=== PATIENT | female | born 1935 | race Caucasian/White ===

== ENCOUNTER 2017-06-17 03:01 | Emergency (ER) | payer MEDICARE, OTHER ==
[2017-06-17] MEDS ORDERED: DIPH,PERTUS(ACELL)TETVAC-LF 0.5 ML VIAL IM ONE (03:14)
[2017-06-17 03:48] LABS: Basophils % (A) 0 %; Eosinophils # (A) 0.4 k/uL (0-0.7); Eosinophils % (A) 5 %; HCT 40.7 % (34.0-46.0); HGB 13.2 gm/dL (11.4-16.0); Lymphocytes # (A) 1.9 k/uL (1.0-4.8); Lymphocytes % (A) 22 %; MCH 31.5 pg (25.0-35.0); MCHC 32.4 g/dL (31.0-37.0); Mean Platelet Volume 7.7; Monocytes # (A) 0.8 k/uL (0-1.0); Monocytes % (A) 10 %; Neutrophils # (A) 5.3 k/uL (1.3-7.7); Neutrophils % (A) 61 %; Platelet Count 194 k/uL (150-450); RBC 4.19 m/uL (3.80-5.40); RDW 12.4 % (11.5-15.5); WBC 8.6 k/uL (3.8-10.6)
[2017-06-17 04:05] LABS: ALT 36 U/L (9-52); AST 36 U/L (14-36); Albumin 3.7 g/dL (3.5-5.0); Alkaline Phosphatase 64 U/L (38-126); Anion Gap 9 mmol/L; Blood Urea Nitrogen 20 mg/dL (7-17); Calcium 9.5 mg/dL (8.4-10.2); Carbon Dioxide 27 mmol/L (22-30); Chloride 106 mmol/L (98-107); Glucose 90 mg/dL (74-99); Potassium 4.7 mmol/L (3.5-5.1); Sodium 142 mmol/L (137-145); Total Bilirubin 0.4 mg/dL (0.2-1.3); Total Protein 6.9 g/dL (6.3-8.2)
--- NOTE | 2017-06-17 04:21 | ED ---
Fall HPI - General Chief Complaint: Fall Stated Complaint: Fall, Head lac Time Seen by Provider: 06/17/17 03:07 Source: patient Mode of arrival: EMS - History of Present Illness Initial Comments: 81 years old female resident of the shelter unfortunately fell tonight it was unwitnessed she does have a small laceration on the right temporal area him a she is on Plavix she is complaining about some discomfort in her neck area also complaining of some discomfort in the upper back, she did not denies any injury to the upper extremities or lower extremities she is denying any chest pain no shortness of breath no abdominal pain no pain in the pelvic area - Related Data Home Medications Medication Instructions Recorded Confirmed Aspirin 81 mg PO DAILY 09/21/14 12/02/14 Insulin Glargine,Hum.rec.anlog 20 unit SQ HS 10/14/14 12/02/14 [Lantus Solostar] Multivitamins, Thera [Multivitamin 1 tab PO DAILY 10/14/14 12/02/14 (formulary)] [place]-3 Fatty Acids [[place]-3] 1,000 mg PO DAILY 10/14/14 12/02/14 Citalopram Hydrobromide [CeleXA] 10 mg PO HS@199912/02/14 12/02/14 Previous Rx's Medication Instructions Recorded INSULIN LISPRO (humaLOG) [humaLOG] 0 unit SQ ACHS vial 12/05/14 Levofloxacin [Levaquin] 250 mg PO HS #7 tab 12/05/14 SILVER sulfADIAZINE CREAM 1 applic TOPICAL DAILY applic 12/05/14 [Silvadene Cream] Allergies Allergy/AdvReac Type Severity Reaction Status Date / Time acetaminophen [From [place]] Allergy Unknown Verified 12/02/14 17:38 adhesive Allergy Unknown Verified 12/02/14 17:38 atenolol Allergy Unknown Verified 12/02/14 17:38 clindamycin Allergy Unknown Verified 12/02/14 17:38 clopidogrel bisulfate Allergy Unknown Verified 12/02/14 17:38 [From Plavix] codeine Allergy Unknown Verified 12/02/14 17:38 digoxin Allergy Unknown Verified 12/02/14 17:38 diltiazem HCl [From Cardizem] Allergy Unknown Verified 12/02/14 17:38 diphenhydramine HCl Allergy Anaphylaxis Verified 12/02/14 17:38 [From Benadryl] erythromycin base Allergy Unknown Verified 12/02/14 17:38 flecainide acetate Allergy Unknown Verified 12/02/14 17:38 [From Tambocor] glimepiride Allergy Rash/Hives Verified 12/02/14 17:38 glipizide Allergy Unknown Verified 12/02/14 17:38 hydrocodone bitartrate Allergy Unknown Verified 12/02/14 17:38 [From [place]] lisinopril Allergy Unknown Verified 12/02/14 17:38 lorazepam [From Ativan] Allergy Unknown Verified 12/02/14 17:38 metformin Allergy Unknown Verified 12/02/14 17:38 metoprolol succinate Allergy Unknown Verified 12/02/14 17:38 [From Toprol XL] Penicillins Allergy Rash/Hives Verified 12/02/14 17:38 prednisolone Allergy Rash/Hives Verified 12/02/14 17:38 prochlorperazine Allergy Unknown Verified 12/02/14 17:38 propafenone HCl Allergy Unknown Verified 12/02/14 17:38 [From Rythmol] propoxyphene napsylate Allergy Swelling Verified 12/02/14 17:38 [From Darvocet-N] propranolol Allergy Unknown Verified 12/02/14 17:38 pseudoephedrine HCl Allergy Unknown Verified 12/02/14 17:38 [From Sudafed] rosiglitazone maleate Allergy Unknown Verified 12/02/14 17:38 [From Avandia] Sitojrn-Cue-Nsf Reductase Allergy Unknown Verified 12/02/14 17:38 Inhibitor Sulfa (Sulfonamide Allergy Rash/Hives Verified 12/02/14 17:38 Antibiotics) verapamil HCl [From [place]] Allergy Unknown Verified 12/02/14 17:38 warfarin sodium Allergy Rash/Hives Verified 12/02/14 17:38 [From Coumadin] altaryl Allergy Unknown Uncoded 12/02/14 17:38 Review of Systems ROS Statement: Those systems with pertinent positive or pertinent negative responses have been documented in the HPI. ROS Other: All systems not noted in ROS Statement are negative. Past Medical History Past Medical History: CVA/TIA, Diabetes Mellitus History of Any Multi-Drug Resistant Organisms: None Reported Past Surgical History: Cholecystectomy, Pacemaker Additional Past Surgical History / Comment(s): LEFT KNEE Past Anesthesia/Blood Transfusion Reactions: No Reported Reaction Type of Cardiac Device: Permanent Pacemaker Device Placement Date:: Unknown Past Psychological History: Anxiety Smoking Status: Never smoker Past Alcohol Use History: None Reported Past Drug Use History: None Reported - Past Family History Brother(s) Family Medical History: Myocardial Infarction ([place]) Father Family Medical History: Myocardial Infarction ([place]) General Exam - General Exam Comments Initial Comments: General: The patient is awake and alert, in no distress, and does not appear acutely ill. Skin: Skin is warm and dry and no rashes or lesions are noted. Notice a laceration on the right temporal area Eye: Pupils are equal, round and reactive to light, extra-ocular movements are intact; there is normal conjunctiva bilaterally. Ears, nose, mouth and throat: There are moist mucous membranes and no oral lesions. Neck: The neck is tender at the C4 and C5 Cardiovascular: There is a regular rate and rhythm. No murmur, rub or gallop is appreciated. Respiratory: To auscultation bilateral, crease air exchange bilaterally Gastrointestinal: Soft, non-distended, non-tender abdomen without masses or organomegaly noted. There is no rebound or guarding present. Bowel sounds are unremarkable. Back: There is no tenderness to palpation in the midline. There is no obvious deformity. Musculoskeletal: Normal ROM, no tenderness, There is no pedal edema. There is no calf tenderness or swelling. No cords were appreciated. Neurological: CN II-XII intact, Cranial nerves III through XII are intact. There are no obvious motor or sensory deficits. Coordination appears grossly intact. Speech is normal. Psychiatric: Cooperative, no signs of depression denies any suicidal or homicidal ideation Limitations: no limitations Course Vital Signs 06/17/17 06/17/17 03:13 04:28 Temperature 97.9 F Pulse Rate 65 65 Respiratory 18 16 Rate Blood Pressure 176/77 189/80 O2 Sat by Pulse 97 99 Oximetry MG is a paced noticed some mouth wide QRS complex and noticed a piece things spiked 74 8071 QRS duration is 186 QT/QTc QTc is 510/554 this EKG was compared with [place] [facility] [place] looks pretty similar - Reevaluation(s) Reevaluation #1: She was reassessed at term 5 AM on her imaging and ruled out any subdural or epidural or skull fracture ruled out any cervical spine injury she be discharged home to follow with her family doctor 06/17/17 05:26 Medical Decision Making - Lab Data Result diagrams: 06/17/17 03:32 06/17/17 03:32 Lab Results 06/17/17 06/17/17 Range/Units 03:32 03:32 WBC 8.6 (3.8-10.6) k/uL RBC 4.19 (3.80-5.40) m/uL Hgb 13.2 (11.4-16.0) gm/dL Hct 40.7 (34.0-46.0) % MCV 97.0 (80.0-100.0) fL MCH 31.5 (25.0-35.0) pg MCHC 32.4 (31.0-37.0) g/dL RDW 12.4 (11.5-15.5) % Plt Count 194 (150-450) k/uL Neutrophils % 61 % Lymphocytes % 22 % Monocytes % 10 % Eosinophils % 5 % Basophils % 0 % Neutrophils # 5.3 (1.3-7.7) k/uL Lymphocytes # 1.9 (1.0-4.8) k/uL Monocytes # 0.8 (0-1.0) k/uL Eosinophils # 0.4 (0-0.7) k/uL Basophils # 0.0 (0-0.2) k/uL Sodium 142 (137-145) mmol/L Potassium 4.7 (3.5-5.1) mmol/L Chloride 106 (98-107) mmol/L Carbon Dioxide 27 (22-30) mmol/L Anion Gap 9 mmol/L BUN 20 H (7-17) mg/dL Creatinine 0.60 (0.52-1.04) mg/dL Est GFR (MDRD) Af Amer >60 (>60 ml/min/1.73 sqM) Est GFR (MDRD) Non-Af >60 (>60 ml/min/1.73 sqM) Glucose 90 (74-99) mg/dL Calcium 9.5 (8.4-10.2) mg/dL Total Bilirubin 0.4 (0.2-1.3) mg/dL AST 36 (14-36) U/L ALT 36 (9-52) U/L Alkaline Phosphatase 64 (38-126) U/L Total Protein 6.9 (6.3-8.2) g/dL Albumin 3.7 (3.5-5.0) g/dL Disposition Clinical Impression: Head injury, Neck injury, Fall Disposition: HOME SELF-CARE Condition: Good Referrals: Thomas Sequeira MD [Primary Care Provider] - 1-2 days
--- NOTE | 2017-06-17 04:28 | CT ---
EXAM: CT Head Without Intravenous Contrast CLINICAL HISTORY: Reason: trauma TECHNIQUE: Axial computed tomography images of the head/brain without intravenous contrast. CTDI is 57.40 mGy and DLP is 1047.10 mGy-cm. This CT exam was performed using one or more of the following dose reduction techniques: automated exposure control, adjustment of the mA and/or kV according to patient size, and/or use of iterative reconstruction technique. COMPARISON: 12/04/2014. FINDINGS: Brain: There is mild prominence of the sulci and sylvian fissures. Periventricular and subcortical white matter hypodense changes are similar to previous exam. No hemorrhage. Ventricles: Unremarkable. No ventriculomegaly. Bones/joints: Unremarkable. No acute fracture. Soft tissues: Unremarkable. Sinuses: Unremarkable as visualized. No acute sinusitis. Mastoid air cells: Unremarkable as visualized. No mastoid effusion. IMPRESSION: Cervical atrophy with stable deep white matter hypodense, presumed microvascular changes noted. No acute intracranial process identified. EXAM: CT Cervical Spine Without Intravenous Contrast CLINICAL HISTORY: Reason: trauma TECHNIQUE: Axial computed tomography images of the cervical spine without intravenous contrast. CTDI is 14.30 mGy and DLP is 279.20 mGy-cm. This CT exam was performed using one or more of the following dose reduction techniques: automated exposure control, adjustment of the mA and/or kV according to patient size, and/or use of iterative reconstruction technique. Coronal and sagittal reformatted images were created and reviewed. COMPARISON: No relevant prior studies available. FINDINGS: Vertebrae: Mild reversal of the normal cervical lordosis is presumed muscle spasm. No acute fracture. Discs/spinal canal/neural foramina: Mild disc marginal osteophyte formation with narrowing is identified at C6-7 level. No significant osseous neural foraminal encroachment noted. Soft tissues: Unremarkable. Lung apices: Unremarkable as visualized. IMPRESSION: Mild reversal of the normal cervical lordosis is presumed muscle spasm. No acute osseous traumatic injury or abnormal alignment of the cervical spine.
--- NOTE | 2017-06-17 04:57 | XR ---
EXAM: XR Pelvis, 1 or 2 Views CLINICAL HISTORY: Reason: Trauma TECHNIQUE: Frontal view of the pelvis. COMPARISON: 12/01/2014 FINDINGS: Bones/joints: Symmetric degenerative changes of the hips are noted. Degenerative changes of the inferior lumbar spine is noted. The visualized sacral arcuate lines are normal. No acute fracture. No dislocation. Soft tissues: Unremarkable. IMPRESSION: No acute traumatic abnormality involving the pelvis. Degenerative changes noted.
--- NOTE | 2017-06-17 04:59 | XR ---
EXAM: XR Chest, 1 View CLINICAL HISTORY: Reason: trauma TECHNIQUE: Frontal view of the chest. COMPARISON: 12/02/2014 FINDINGS: Lungs: The pulmonary vasculature is within normal limits. Pleural space: Unremarkable. No pneumothorax. Heart: Unremarkable. No cardiomegaly. Mediastinum: Unremarkable. Bones/joints: Unremarkable. Tubes, lines and devices: Left subclavian pacer leads are identified. IMPRESSION: No evidence for acute thoracic traumatic injury, acute cardiopulmonary process or segmental airspace disease.
--- NOTE | 2017-06-17 05:03 | XR ---
EXAM: XR Thoracic Spine, 3 Views CLINICAL HISTORY: Reason: Pain TECHNIQUE: Frontal, lateral and swimmer's views of the thoracic spine. COMPARISON: 10/14/2014 FINDINGS: Vertebrae: Minimal loss of height involving several mid thoracic vertebral bodies is stable from previous exam. No acute fracture. Normal alignment. Disc spaces: Multilevel degenerative changes with hypertrophic osteophyte formation noted anteriorly involving the inferior thoracic and thoracolumbar spine. Soft tissues: Unremarkable. IMPRESSION: No acute traumatic findings involving the thoracic spine.
[2017-06-17 08:14] VITALS: BP 180/87; PULSE 78; RESP 18; TEMP 97.5
== END 2017-06-17 05:57 | disposition home or self-care (01) ==
LOC: EC 03:01
DX: S01.81XA Laceration without foreign body of other part of head, initial encounter (principal); S19.9XXA Unspecified injury of neck, initial encounter; E11.9 Type 2 diabetes mellitus without complications; Z88.5 Allergy status to narcotic agent; Z88.1 Allergy status to other antibiotic agents; Z88.0 Allergy status to penicillin; Z23 Encounter for immunization; Z88.2 Allergy status to sulfonamides; Z88.8 Allergy status to other drugs, medicaments and biological substances; Z91.048 Other nonmedicinal substance allergy status; Z79.82 Long term (current) use of aspirin; Z79.4 Long term (current) use of insulin; Z79.899 Other long term (current) drug therapy; W19.XXXA Unspecified fall, initial encounter; Y92.129 Unspecified place in nursing home as the place of occurrence of the external cause
CPT/HCPCS: 36415; 70450; 71045; 72072; 72125; 72170; 80053; 85025; 90471; 90715; 93005; 99285

== ENCOUNTER 2018-04-01 17:43 | Emergency (ER) | payer MEDICARE, OTHER ==
[2018-04-01 18:00] VITALS: RESP 16; TEMP 98.3
[2018-04-01] MEDS ORDERED: DIPH,PERTUS(ACELL)TETVAC-LF 0.5 ML VIAL IM ONE (18:04)
--- NOTE | 2018-04-01 19:26 | CT ---
EXAMINATION TYPE: CT brain cspine wo con DATE OF EXAM: 04/01/2018 COMPARISON: CT brain and cervical spine June 17, 2017. HISTORY: Fall injury, facial lacerations headache and neck pain. CT DLP: 1147.8 mGycm. Automated Exposure Control for Dose Reduction was Utilized. TECHNIQUE: CT scan of the head and cervical spine are performed without contrast. FINDINGS: There is no acute intracranial hemorrhage or midline shift identified. There is ventricul ar and sulcal prominence consistent with diffuse cerebral atrophy. There are focal and confluent area s of T2 hyperintensity throughout the deep and periventricular white matter. Lesions are nonspecific in appearance and distribution. The globes are intact and the visualized sinuses are clear. The calv arium is intact. Cervical spine is visualized in its entirety from C1 through upper thoracic levels and demonstrates s traightening alignment without evidence of acute fracture or dislocation. Prevertebral soft tissue a ppears within normal limits. The C1-C2 articulation is within normal limits on the coronal images. O sseous structures remain demineralized. Vertebral body heights are maintained. There is mild to moder ate disc space narrowing at C4-C5 and C6-C7 levels. Posterior disc herniation is effacing the anterio r thecal sac at C6-C7 level on sagittal image 48. Review of axial images shows moderate to severe salima cified plaque at bilateral carotid bulbs, right greater than left. There is heterogeneity with promin ent left greater than right thyroid lobes redemonstrated. Visualized lung apices show mild to moderat e pleural/parenchymal scarring. IMPRESSION: 1. There is no acute fracture or dislocation evident in the cervical spine. 2. No acute intracranial hemorrhage or midline shift is seen. There is [id number] diffuse cereb ral atrophy and moderate to advanced chronic small vessel ischemic change redemonstrated.
--- NOTE | 2018-04-01 20:02 | XR ---
EXAMINATION TYPE: XR pelvis AP view DATE OF EXAM: 04/01/2018 CLINICAL HISTORY: Fall injury with pain. TECHNIQUE: A single AP view of the pelvis is obtained. COMPARISON: Pelvic x-ray June 17, 2017. FINDINGS: Osseous structures are demineralized. There is no acute fracture/dislocation evident in th e pelvis. The sacroiliac joints appear symmetric and unremarkable. Mild to moderate narrowing and s purring at bilateral hip joints is redemonstrated. Vascular calcification and phleboliths in overlyin g soft tissue is again seen.. IMPRESSION: There is no acute fracture or dislocation in the pelvis.
--- NOTE | 2018-04-01 20:03 | XR ---
EXAMINATION TYPE: XR chest 2V DATE OF EXAM: 04/01/2018 COMPARISON: Chest x-ray June 17, 2017. HISTORY: Fall injury with chest pain. TECHNIQUE: Frontal and lateral views of the chest are obtained. FINDINGS: There is some chronic parenchymal change without suspicious new focal air space opacity, p leural effusion, or pneumothorax seen. The cardiac silhouette size remains enlarged with dual lead p acemaker and atherosclerotic thoracic aorta. The osseous structures remain demineralized. IMPRESSION: Cardiomegaly without acute pulmonary process.
--- NOTE | 2018-04-01 21:05 | ED ---
General Adult HPI - General Chief complaint: Fall Stated complaint: Fall Time Seen by Provider: 04/01/18 17:48 Source: patient, EMS, RN notes reviewed, old records reviewed Mode of arrival: EMS Limitations: no limitations - History of Present Illness Initial comments: 82-year-old female status post fall. Patient is coming from the [place] [facility], she fell striking her left cheek on the toilet. EMS reports no loss of consciousness, patient is unable to contribute to his history. She has history of dementia. No complaints the time my evaluation. - Related Data Home Medications Medication Instructions Recorded Confirmed Aspirin 81 mg PO DAILY 09/21/14 04/01/18 Multivitamins, Thera [Multivitamin 1 tab PO DAILY 10/14/14 04/01/18 (formulary)] [place]-3 Fatty Acids [[place]-3] 1,000 mg PO DAILY 10/14/14 04/01/18 Citalopram Hydrobromide [CeleXA] 10 mg PO ONCE 12/02/14 04/01/18 Acetaminophen [Tylenol] 650 mg PO Q4H PRN 04/01/18 04/01/18 Citalopram Hydrobromide [CeleXA] 20 mg PO DAILY 04/01/18 04/01/18 Docusate [Colace] 100 mg PO DAILY 04/01/18 04/01/18 Donepezil [Aricept] 5 mg PO DAILY 04/01/18 04/01/18 Empagliflozin [Jardiance] 25 mg PO DAILY 04/01/18 04/01/18 Insulin Detemir [Levemir] 25 unit SQ HS 04/01/18 04/01/18 Mylanta 30 ml PO Q6H PRN 04/01/18 04/01/18 Triamcinolone 0.1% Cream [Kenalog 1 applic TOPICAL BID PRN 04/01/18 04/01/18 0.1% Cream] Allergies Allergy/AdvReac Type Severity Reaction Status Date / Time acetaminophen [From [place]] Allergy Unknown Verified 04/01/18 18:39 adhesive Allergy Unknown Verified 04/01/18 18:39 atenolol Allergy Unknown Verified 04/01/18 18:39 clindamycin Allergy Unknown Verified 04/01/18 18:39 clopidogrel bisulfate Allergy Unknown Verified 04/01/18 18:39 [From Plavix] codeine Allergy Unknown Verified 04/01/18 18:39 digoxin Allergy Unknown Verified 04/01/18 18:39 diltiazem HCl [From Cardizem] Allergy Unknown Verified 04/01/18 18:39 diphenhydramine HCl Allergy Anaphylaxis Verified 04/01/18 18:39 [From Benadryl] erythromycin base Allergy Unknown Verified 04/01/18 18:39 flecainide acetate Allergy Unknown Verified 04/01/18 18:39 [From Tambocor] glimepiride Allergy Rash/Hives Verified 04/01/18 18:39 glipizide Allergy Unknown Verified 04/01/18 18:39 hydrocodone bitartrate Allergy Unknown Verified 04/01/18 18:39 [From [place]] lisinopril Allergy Unknown Verified 04/01/18 18:39 lorazepam [From Ativan] Allergy Unknown Verified 04/01/18 18:39 metformin Allergy Unknown Verified 04/01/18 18:39 metoprolol succinate Allergy Unknown Verified 04/01/18 18:39 [From Toprol XL] Penicillins Allergy Rash/Hives Verified 04/01/18 18:39 prednisolone Allergy Rash/Hives Verified 04/01/18 18:39 prochlorperazine Allergy Unknown Verified 04/01/18 18:39 propafenone HCl Allergy Unknown Verified 04/01/18 18:39 [From Rythmol] propoxyphene napsylate Allergy Swelling Verified 04/01/18 18:39 [From Darvocet-N] propranolol Allergy Unknown Verified 04/01/18 18:39 pseudoephedrine HCl Allergy Unknown Verified 04/01/18 18:39 [From Sudafed] rosiglitazone maleate Allergy Unknown Verified 04/01/18 18:39 [From Avandia] Fzakcgg-Coh-Ptd Reductase Allergy Unknown Verified 04/01/18 18:39 Inhibitor Sulfa (Sulfonamide Allergy Rash/Hives Verified 04/01/18 18:39 Antibiotics) verapamil HCl [From [place]] Allergy Unknown Verified 04/01/18 18:39 warfarin sodium Allergy Rash/Hives Verified 04/01/18 18:39 [From Coumadin] altaryl Allergy Unknown Uncoded 04/01/18 18:00 antihistamines Allergy Unknown Uncoded 04/01/18 18:39 Review of Systems ROS Statement: Those systems with pertinent positive or pertinent negative responses have been documented in the HPI. ROS Other: All systems not noted in ROS Statement are negative. Past Medical History Past Medical History: CVA/TIA, Diabetes Mellitus History of Any Multi-Drug Resistant Organisms: None Reported Past Surgical History: Cholecystectomy, Pacemaker Additional Past Surgical History / Comment(s): LEFT KNEE Past Anesthesia/Blood Transfusion Reactions: No Reported Reaction Type of Cardiac Device: Permanent Pacemaker Device Placement Date:: Unknown Past Psychological History: Anxiety Smoking Status: Never smoker Past Alcohol Use History: None Reported Past Drug Use History: None Reported - Past Family History Brother(s) Family Medical History: Myocardial Infarction ([place]) Father Family Medical History: Myocardial Infarction ([place]) General Exam Limitations: no limitations General appearance: alert Head exam: Present: other (Small skin tear on the patient is a nose, 3 cm laceration over the left cheek, periorbital ecchymosis.) Eye exam: Present: PERRL, periorbital swelling, periorbital tenderness Neck exam: Present: normal inspection, other (C-collar in place by EMS). Absent : tenderness, meningismus Respiratory exam: Present: normal lung sounds bilaterally. Absent: respiratory distress Cardiovascular Exam: Present: regular rate, normal rhythm GI/Abdominal exam: Present: soft. Absent: distended, tenderness, guarding Extremities exam: Present: normal inspection, normal capillary refill. Absent: pedal edema Neurological exam: Present: alert. Absent: oriented X3, motor sensory deficit Skin exam: Present: warm. Absent: cyanosis, diaphoretic Course Vital Signs 04/01/18 04/01/18 17:54 20:13 Temperature 98.3 F Respiratory 16 16 Rate Blood Pressure 158/66 146/85 O2 Sat by Pulse 99 Oximetry Procedures - Laceration Laceration #1 Consent Obtained: emergent situation Time Out Performed: Yes Indication: laceration Site: face Description: linear Anesthetic Used: lidocaine 1% Anesthesia Technique: local infiltration Pre-repair: wound explored, irrigated extensively, deep structures intact Type of Sutures: nylon Size of Sutures: 5-0 Number of Sutures: 3 Technique: simple, interrupted Patient Tolerated Procedure: well Medical Decision Making - Medical Decision Making 82-year-old female from [facility] status post fall. Patient has dementia, unable to significantly contribute to the history. According to EMS she fell striking her face on the toilet. Laceration of the cheek, no other scalp lacerations. Mild abrasion to the bridge of the nose. There is some periorbital swelling as well. Tetanus is updated. CT head is obtained, negative for intracranial hemorrhage or mass effect. CT cervical spine negative for fracture or subluxation, chest and pelvis x-rays are negative for acute abnormality. Laceration of the cheek is repaired with 5-0 nylon suture. The nurse is able to discuss the patient's baseline with [facility] staff. She is currently at her baseline mental status. She will be discharged back to the [place] [facility]. Suture removal in 5-7 days. Disposition Clinical Impression: Fall, Facial laceration, Closed head injury Disposition: HOME SELF-CARE Condition: Fair Instructions: Care For Your Stitches (ED), Laceration (ED), Fall Prevention for Older Adults (ED) Additional Instructions: Please have sutures removed in 5-7 days Is patient prescribed a controlled substance at d/c from ED?: No Referrals: Thomas Sequeira MD [Primary Care Provider] - 1-2 days Time of Disposition: 21:05
[2018-04-01 23:10] VITALS: BP 131/82; PULSE 76
== END 2018-04-01 23:10 | disposition home or self-care (01) ==
LOC: EC 17:43
DX: S01.412A Laceration without foreign body of left cheek and temporomandibular area, initial encounter (principal); S09.90XA Unspecified injury of head, initial encounter; Z23 Encounter for immunization; F41.9 Anxiety disorder, unspecified; F03.90 Unspecified dementia, unspecified severity, without behavioral disturbance, psychotic disturbance, mood disturbance, and anxiety; E11.9 Type 2 diabetes mellitus without complications; Z79.4 Long term (current) use of insulin; Z79.82 Long term (current) use of aspirin; Z79.899 Other long term (current) drug therapy; Z88.6 Allergy status to analgesic agent; Z91.048 Other nonmedicinal substance allergy status; Z88.8 Allergy status to other drugs, medicaments and biological substances; Z88.1 Allergy status to other antibiotic agents; Z88.0 Allergy status to penicillin; Z88.2 Allergy status to sulfonamides; Z86.73 Personal history of transient ischemic attack (TIA), and cerebral infarction without residual deficits; Z95.0 Presence of cardiac pacemaker; Z90.49 Acquired absence of other specified parts of digestive tract; W18.12XA Fall from or off toilet with subsequent striking against object, initial encounter; Y92.121 Bathroom in nursing home as the place of occurrence of the external cause
CPT/HCPCS: 12013; 70450; 71046; 72125; 72170; 90471; 90715; 99284

== ENCOUNTER 2018-04-29 12:47 | Inpatient (IN) | payer MEDICARE, OTHER ==
[2018-04-29] MEDS ORDERED: SODIUM CHLORIDE 0.9% 500 ML 500 ML IV ONE (13:01)
--- NOTE | 2018-04-29 13:07 | ED ---
General Adult HPI - General Stated complaint: Confusion Time Seen by Provider: 04/29/18 12:50 Source: RN notes reviewed - History of Present Illness Initial comments: This is an 82-year-old female who is brought to the emergency department by EMS for altered mental status. According to the staff she is alert and oriented 1 normally and today she continued to be alert and oriented 1 however she was just staring off at breakfast and not eating which is very abnormal for her. Patient did have a fall about a month ago and had a workup in the emergency department at that time. Patient herself cannot give any history. There is no other person with the patient at this time and no staff member with the patient at this time.. At this time there is no other history is able to be obtained - Related Data Home Medications Medication Instructions Recorded Confirmed Aspirin 81 mg PO DAILY 09/21/14 04/29/18 Multivitamins, Thera [Multivitamin 1 tab PO DAILY 10/14/14 04/29/18 (formulary)] [place]-3 Fatty Acids [[place]-3] 1,000 mg PO DAILY 10/14/14 04/29/18 Citalopram Hydrobromide [CeleXA] 20 mg PO DAILY 04/01/18 04/29/18 Docusate [Colace] 100 mg PO DAILY 04/01/18 04/29/18 Donepezil [Aricept] 5 mg PO DAILY 04/01/18 04/29/18 Empagliflozin [Jardiance] 25 mg PO DAILY 04/01/18 04/29/18 Insulin Detemir [Levemir] 25 unit SQ HS 04/01/18 04/29/18 Mylanta 30 ml PO Q6H PRN 04/01/18 04/29/18 Acetaminophen [Tylenol Extra 500 mg PO Q6H PRN 04/29/18 04/29/18 Strength] Magnesium Hydroxide [Milk of 800 mg PO Q72H PRN 04/29/18 04/29/18 Magnesia] Repaglinide [Prandin] 0.5 mg PO DAILY 04/29/18 04/29/18 Allergies Allergy/AdvReac Type Severity Reaction Status Date / Time acetaminophen [From [place]] Allergy Unknown Verified 04/29/18 13:26 adhesive Allergy Unknown Verified 04/29/18 13:26 atenolol Allergy Unknown Verified 04/29/18 13:26 clindamycin Allergy Unknown Verified 04/29/18 13:26 clopidogrel bisulfate Allergy Unknown Verified 04/29/18 13:26 [From Plavix] codeine Allergy Unknown Verified 04/29/18 13:26 digoxin Allergy Unknown Verified 04/29/18 13:26 diltiazem HCl [From Cardizem] Allergy Unknown Verified 04/29/18 13:26 diphenhydramine HCl Allergy Anaphylaxis Verified 04/29/18 13:26 [From Benadryl] erythromycin base Allergy Unknown Verified 04/29/18 13:26 flecainide acetate Allergy Unknown Verified 04/29/18 13:26 [From Tambocor] glimepiride Allergy Rash/Hives Verified 04/29/18 13:26 glipizide Allergy Unknown Verified 04/29/18 13:26 hydrocodone bitartrate Allergy Unknown Verified 04/29/18 13:26 [From [place]] lisinopril Allergy Unknown Verified 04/29/18 13:26 lorazepam [From Ativan] Allergy Unknown Verified 04/29/18 13:26 metformin Allergy Unknown Verified 04/29/18 13:26 metoprolol succinate Allergy Unknown Verified 04/29/18 13:26 [From Toprol XL] Penicillins Allergy Rash/Hives Verified 04/29/18 13:26 prednisolone Allergy Rash/Hives Verified 04/29/18 13:26 prochlorperazine Allergy Unknown Verified 04/29/18 13:26 propafenone HCl Allergy Unknown Verified 04/29/18 13:26 [From Rythmol] propoxyphene napsylate Allergy Swelling Verified 04/29/18 13:26 [From Darvocet-N] propranolol Allergy Unknown Verified 04/29/18 13:26 pseudoephedrine HCl Allergy Unknown Verified 04/29/18 13:26 [From Sudafed] rosiglitazone maleate Allergy Unknown Verified 04/29/18 13:26 [From Avandia] Ovuzajs-Hxo-Qvb Reductase Allergy Unknown Verified 04/29/18 13:26 Inhibitor Sulfa (Sulfonamide Allergy Rash/Hives Verified 04/29/18 13:26 Antibiotics) verapamil HCl [From [place]] Allergy Unknown Verified 04/29/18 13:26 warfarin sodium Allergy Rash/Hives Verified 04/29/18 13:26 [From Coumadin] altaryl Allergy Unknown Uncoded 04/01/18 18:00 antihistamines Allergy Unknown Uncoded 04/01/18 18:39 Review of Systems ROS Statement: Those systems with pertinent positive or pertinent negative responses have been documented in the HPI. ROS Other: All systems not noted in ROS Statement are negative. Past Medical History Past Medical History: CVA/TIA, Diabetes Mellitus History of Any Multi-Drug Resistant Organisms: None Reported Past Surgical History: Cholecystectomy, Pacemaker Additional Past Surgical History / Comment(s): LEFT KNEE Past Anesthesia/Blood Transfusion Reactions: No Reported Reaction Type of Cardiac Device: Permanent Pacemaker Device Placement Date:: Unknown Past Psychological History: Anxiety Smoking Status: Never smoker Past Alcohol Use History: None Reported Past Drug Use History: None Reported - Past Family History Brother(s) Family Medical History: Myocardial Infarction ([place]) Father Family Medical History: Myocardial Infarction ([place]) General Exam - General Exam Comments Initial Comments: GENERAL: Patient is well-developed and well-nourished. Patient is nontoxic and well- hydrated and is in no acute distress. Patient has some remote bruising to the left side of her face ENT: Neck is soft and supple. No significant lymphadenopathy is noted. Oropharynx is clear. Moist mucous membranes. Neck has full range of motion without eliciting any pain. EYES: The sclera were anicteric and conjunctiva were pink and moist. Extraocular movements were intact and pupils were equal round and reactive to light. Eyelids were unremarkable. PULMONARY: Unlabored respirations. Good breath sounds bilaterally. No audible rales rhonchi or wheezing was noted. CARDIOVASCULAR: Patient is a regular rate and rhythm ABDOMEN: Soft and nontender with normal bowel sounds. No palpable organomegaly was noted. There is no palpable pulsatile mass. SKIN: Skin is clear with no lesions or rashes and otherwise unremarkable. NEUROLOGIC: Patient is alert and oriented 1. Cranial nerves II through XII are grossly intact. Motor and sensory are also intact. Normal speech, volume and content. Symmetrical smile. MUSCULOSKELETAL: Normal extremities with adequate strength and full range of motion. No lower extremity swelling or edema. No calf tenderness. LYMPHATICS: No significant lymphadenopathy is noted PSYCHIATRIC: Unable to assess Course Vital Signs 04/29/18 04/29/18 04/29/18 12:56 13:00 13:30 Temperature 98.2 F Pulse Rate 65 67 69 Respiratory 18 18 18 Rate Blood Pressure 127/56 127/56 116/56 O2 Sat by Pulse 96 94 L 78 L Oximetry 04/29/18 14:30 Temperature Pulse Rate 64 Respiratory 16 Rate Blood Pressure 102/55 O2 Sat by Pulse 93 L Oximetry Medical Decision Making - Medical Decision Making Patient's EKG shows a paced rhythm at 69 bpm [place] interval 264 QRS is 78 QT interval 498 QTC is 433. Patient's EKG shows no ST segment elevation or depression or T wave abnormalities are noted. Daughter arrived and states that since last night the patient seems to be weaker and her speech is more garbled than normal and CT of the brain shows no acute abnormality. Chest x-ray shows no acute abnormality. Patient's troponin was mildly elevated. Patient also urinary tract infection. I started the patient on antibiotics. - Lab Data Result diagrams: 04/29/18 13:11 04/29/18 13:11 Lab Results 04/29/18 04/29/18 04/29/18 Range/Units 13:11 13:11 13:11 WBC 11.3 H (3.8-10.6) k/uL RBC 4.25 (3.80-5.40) m/uL Hgb 12.9 (11.4-16.0) gm/dL Hct 40.1 (34.0-46.0) % MCV 94.2 (80.0-100.0) fL MCH 30.2 (25.0-35.0) pg MCHC 32.1 (31.0-37.0) g/dL RDW 12.8 (11.5-15.5) % Plt Count 285 (150-450) k/uL Neutrophils % 65 % Lymphocytes % 25 % Monocytes % 8 % Eosinophils % 0 % Basophils % 0 % Neutrophils # 7.3 (1.3-7.7) k/uL Lymphocytes # 2.8 (1.0-4.8) k/uL Monocytes # 0.9 (0-1.0) k/uL Eosinophils # 0.1 (0-0.7) k/uL Basophils # 0.1 (0-0.2) k/uL PT (9.0-12.0) sec INR (<1.2) APTT (22.0-30.0) sec Sodium 139 (137-145) mmol/L Potassium 5.3 H (3.5-5.1) mmol/L Chloride 105 (98-107) mmol/L Carbon Dioxide 24 (22-30) mmol/L Anion Gap 10 mmol/L BUN 17 (7-17) mg/dL Creatinine 0.78 (0.52-1.04) mg/dL Est GFR (CKD-EPI)AfAm 82 (>60 ml/min/1.73 sqM) Est GFR (CKD-EPI)NonAf 71 (>60 ml/min/1.73 sqM) Glucose 200 H (74-99) mg/dL Calcium 9.3 (8.4-10.2) mg/dL Total Bilirubin 0.5 (0.2-1.3) mg/dL AST 17 (14-36) U/L ALT 19 (9-52) U/L Alkaline Phosphatase 61 (38-126) U/L Total Creatine Kinase <20 L (30-135) U/L CK-MB (CK-2) 0.5 (0.0-2.4) ng/mL CK-MB (CK-2) Rel Index Troponin I 0.104 H* (0.000-0.034) ng/mL Total Protein 7.6 (6.3-8.2) g/dL Albumin 3.4 L (3.5-5.0) g/dL Urine Color Urine Appearance (Clear) Urine pH (5.0-8.0) Ur Specific [place] (1.001-1.035) Urine Protein (Negative) Urine Glucose (UA) (Negative) Urine Ketones (Negative) Urine Blood (Negative) Urine Nitrite (Negative) Urine Bilirubin (Negative) Urine Urobilinogen (<2.0) mg/dL Ur Leukocyte Esterase (Negative) Urine RBC (0-5) /hpf Urine WBC (0-5) /hpf Urine WBC Clumps (None) /hpf Urine Bacteria (None) /hpf Urine Opiates Screen (NotDetected) Ur Oxycodone Screen (NotDetected) Urine Methadone Screen (NotDetected) Ur Propoxyphene Screen (NotDetected) Ur Barbiturates Screen (NotDetected) U Tricyclic Antidepress (NotDetected) Ur Phencyclidine Scrn (NotDetected) Ur Amphetamines Screen (NotDetected) U Methamphetamines Scrn (NotDetected) U Benzodiazepines Scrn (NotDetected) Urine Cocaine Screen (NotDetected) U Marijuana (THC) Screen (NotDetected) 04/29/18 04/29/18 Range/Units 13:11 14:25 WBC (3.8-10.6) k/uL RBC (3.80-5.40) m/uL Hgb (11.4-16.0) gm/dL Hct (34.0-46.0) % MCV (80.0-100.0) fL MCH (25.0-35.0) pg MCHC (31.0-37.0) g/dL RDW (11.5-15.5) % Plt Count (150-450) k/uL Neutrophils % % Lymphocytes % % Monocytes % % Eosinophils % % Basophils % % Neutrophils # (1.3-7.7) k/uL Lymphocytes # (1.0-4.8) k/uL Monocytes # (0-1.0) k/uL Eosinophils # (0-0.7) k/uL Basophils # (0-0.2) k/uL PT 10.3 (9.0-12.0) sec INR 1.0 (<1.2) APTT 26.4 (22.0-30.0) sec Sodium (137-145) mmol/L Potassium (3.5-5.1) mmol/L Chloride (98-107) mmol/L Carbon Dioxide (22-30) mmol/L Anion Gap mmol/L BUN (7-17) mg/dL Creatinine (0.52-1.04) mg/dL Est GFR (CKD-EPI)AfAm (>60 ml/min/1.73 sqM) Est GFR (CKD-EPI)NonAf (>60 ml/min/1.73 sqM) Glucose (74-99) mg/dL Calcium (8.4-10.2) mg/dL Total Bilirubin (0.2-1.3) mg/dL AST (14-36) U/L ALT (9-52) U/L Alkaline Phosphatase (38-126) U/L Total Creatine Kinase (30-135) U/L CK-MB (CK-2) (0.0-2.4) ng/mL CK-MB (CK-2) Rel Index Troponin I (0.000-0.034) ng/mL Total Protein (6.3-8.2) g/dL Albumin (3.5-5.0) g/dL Urine Color Yellow Urine Appearance Turbid H (Clear) Urine pH 6.0 (5.0-8.0) Ur Specific [place] 1.022 (1.001-1.035) Urine Protein 1+ H (Negative) Urine Glucose (UA) 4+ H (Negative) Urine Ketones Negative (Negative) Urine Blood Large H (Negative) Urine Nitrite Negative (Negative) Urine Bilirubin Negative (Negative) Urine Urobilinogen <2.0 (<2.0) mg/dL Ur Leukocyte Esterase Large H (Negative) Urine RBC 26 H (0-5) /hpf Urine WBC >182 H (0-5) /hpf Urine WBC Clumps Many H (None) /hpf Urine Bacteria Many H (None) /hpf Urine Opiates Screen Not Detected (NotDetected) Ur Oxycodone Screen Not Detected (NotDetected) Urine Methadone Screen Not Detected (NotDetected) Ur Propoxyphene Screen Not Detected (NotDetected) Ur Barbiturates Screen Not Detected (NotDetected) U Tricyclic Antidepress Not Detected (NotDetected) Ur Phencyclidine Scrn Not Detected (NotDetected) Ur Amphetamines Screen Not Detected (NotDetected) U Methamphetamines Scrn Not Detected (NotDetected) U Benzodiazepines Scrn Not Detected (NotDetected) Urine Cocaine Screen Not Detected (NotDetected) U Marijuana (THC) Screen Not Detected (NotDetected) Disposition Clinical Impression: Altered mental status, Urinary tract infection, Elevated troponin Disposition: ADMITTED IP TO THIS HOSP Referrals: Thomas Sequeira MD [Primary Care Provider] - 1-2 days Time of Disposition: 15:53
[2018-04-29 13:27] LABS: Basophils # (A) 0.1 k/uL (0-0.2); Basophils % (A) 0 %; Eosinophils # (A) 0.1 k/uL (0-0.7); Eosinophils % (A) 0 %; HCT 40.1 % (34.0-46.0); HGB 12.9 gm/dL (11.4-16.0); Lymphocytes # (A) 2.8 k/uL (1.0-4.8); Lymphocytes % (A) 25 %; MCH 30.2 pg (25.0-35.0); MCHC 32.1 g/dL (31.0-37.0); MCV 94.2 fL (80.0-100.0); Mean Platelet Volume 7.2; Monocytes # (A) 0.9 k/uL (0-1.0); Monocytes % (A) 8 %; Neutrophils # (A) 7.3 k/uL (1.3-7.7); Neutrophils % (A) 65 %; Platelet Count 285 k/uL (150-450); RBC 4.25 m/uL (3.80-5.40); RDW 12.8 % (11.5-15.5); WBC 11.3 k/uL (3.8-10.6)
[2018-04-29 13:37] LABS: Albumin 3.4 g/dL (3.5-5.0); Calcium 9.3 mg/dL (8.4-10.2); Potassium 5.3 mmol/L (3.5-5.1); Total Bilirubin 0.5 mg/dL (0.2-1.3); Total Protein 7.6 g/dL (6.3-8.2)
[2018-04-29 13:46] LABS: Partial Thromboplastin Time 26.4 sec (22.0-30.0); Prothrombin Time 10.3 sec (9.0-12.0)
[2018-04-29 13:47] LABS: Creatine Kinase <20 U/L (30-135)
[2018-04-29 14:00] LABS: Creatine Kinase MB 0.5 ng/mL (0.0-2.4)
[2018-04-29 14:01] LABS: Troponin I 0.104 ng/mL (0.000-0.034)
--- NOTE | 2018-04-29 14:14 | CT ---
EXAMINATION TYPE: CT brain wo con DATE OF EXAM: 04/29/2018 COMPARISON: 04/01/2018 HISTORY: Altered mental status changes CT DLP: 1007.4 mGycm Automated exposure control for dose reduction was used. FINDINGS: There is no acute intracranial hemorrhage or midline shift identified. There is moderate generalized degenerative change. Hypodensity within the basal ganglia suggestive of remote lacunar infarction. In tracranial atherosclerotic changes noted. There are nonspecific low-attenuation throughout the deep and periventricular white matter. Lesions a re nonspecific in appearance and distribution. The globes are intact and the visualized sinuses are c lear. The calvarium is intact. IMPRESSION: 1. No acute intracranial hemorrhage or mass effect. The A1 segment of the right anterior cerebral art michael does appear to be somewhat hyperdense. This could be correlated with CTA or MRI, MRA to assess fo r thrombosis. 2. Degenerative and nonspecific white matter changes most typical remote microvascular ischemia. If t here is concern for acute ischemia correlate with MRI as clinically warranted.
--- NOTE | 2018-04-29 14:19 | XR ---
EXAMINATION TYPE: XR chest 2V DATE OF EXAM: 04/29/2018 COMPARISON: 04/01/2018 HISTORY: Altered mental status TECHNIQUE: Frontal and lateral views of the chest are obtained. FINDINGS: Chronic interstitial prominence is seen throughout. There is no focal air space opacity, p leural effusion, or pneumothorax seen. The cardiac silhouette size is mildly enlarged with a dual-le ad left-sided cardiac device noted. The osseous structures are intact. Again there is diffuse osseo us demineralization. Mild multilevel degenerative changes of the thoracic spine are seen. IMPRESSION: Chronic changes with no acute cardiopulmonary process.
[2018-04-29 14:55] LABS: Appearance,Urine Turbid (Clear); Bacteria,Urine Many /hpf; Bilirubin,Urine Negative (Negative); Blood,Urine Large (Negative); Color,Urine Yellow; Glucose,Urine (UA) 4+ (Negative); Ketones,Urine Negative (Negative); Leukocyte Esterase,Urine Large (Negative); Nitrite,Urine Negative (Negative); Protein,Urine 1+ (Negative); RBC,Urine 26 /hpf (0-5); Specific Gravity,Urine 1.022 (1.001-1.035); Urobilinogen,Urine <2.0 mg/dL (<2.0); WBC,Urine >182 /hpf (0-5)
[2018-04-29 15:08] LABS: Amphetamine Screen,Urine Not Detected (NotDetected); Barbiturate Screen,Urine Not Detected (NotDetected); Benzodiazepines Screen,Urine Not Detected (NotDetected); Cocaine Screen,Urine Not Detected (NotDetected); Methadone Screen, Urine Not Detected (NotDetected); Opiate Screen,Urine Not Detected (NotDetected); Oxycodone Screen, Urine Not Detected (NotDetected); Phencyclidine Screen,Urine Not Detected (NotDetected); Tricyclic Antidepressant,Urine Not Detected (NotDetected); Urn Cannabinoid Scrn Not Detected (NotDetected)
[2018-04-29] MEDS ORDERED: cefTRIAXone 2,000 MG in SODIUM CHLORIDE 0.9% 100 ML IVPB STA (15:49)
[2018-04-29] MEDS ORDERED: SODIUM CHLORIDE 0.9% 1,000 ML IV ONE (15:54)
[2018-04-29 20:52] LABS: Glucose,Whole Blood 184 mg/dL (75-99)
[2018-04-29] MEDS ORDERED: MAGNESIUM HYDROXIDE 2,400 MG/10 ML CUP PO PRN (21:14)
[2018-04-29] MEDS ORDERED: MAG HYDROX/AL HYDROX/SIMETH 30 ML CUP PO PRN (21:14)
[2018-04-29] MEDS: INSULIN DETEMIR 100 UNIT/ML 10 ML VIAL SQ SCH (22:00)
[2018-04-30 06:39] LABS: Glucose,Whole Blood 95 mg/dL (75-99)
[2018-04-30] MEDS: NON-FORMULARY DRUG (Empagliflozin [Jardiance] 25 MG) PO SCH (08:55)
--- NOTE | 2018-04-30 08:57 | P.CNNES ---
History of Present Illness Consult date: 04/30/18 Requesting physician: Thomas Sequeira Reason for Consult: Altered mental status Chief complaint: Altered mental status History of Present Illness: Neurology is consulting on an 82-year-old female for altered mental status. Patient was brought to the ED by EMS when she was alert and oriented 1 [facility]. Patient was at breakfast and was not eating which is highly abnormal. Patient did have a fall proximally month ago and had workup in the ED at that time. Patient was unable to give history in the ED. Patient did not have any staff member to accompany to provide any further information. CT brain noted no acute infarct cranial hemorrhage or mass effect. A1 segment on the right anterior cerebral artery does appear to be somewhat hyperdense. Could be correlated with CTA or MRI, MRA to assess for thrombosis. 2. Degenerative and nonspecific white matter changes most typical with remote microvascular ischemia. At through his concern for acute ischemia correlated with MRI as clinically warranted. Patient's urinalysis notes 1+ protein, 4+ glucose, large blood, large leukocyte esterase, greater than 26 RBC, greater than 182 WBC with many clumps and many bacteria. Patient is on IV antibiotics. On contact, patient is alert and oriented 1, resting in bed in no acute distress. Review of Systems Systems not noted in HPI or negative, review of systems obtained from previous charting due to inability to gather information from patient and no staff member from [facility] present. Past Medical History Past Medical History: Coronary Artery Disease (CAD), Heart Failure, CVA/TIA, Dementia, Diabetes Mellitus, Hyperlipidemia, Hypertension, Osteoarthritis (OA) Additional Past Medical History / Comment(s): bladder incont,neuropathy, dermatitis,past falls(per [facility] paperwork, pt not ambulatory), uti, per 2015 summary-past afib History of Any Multi-Drug Resistant Organisms: None Reported Past Surgical History: Cardiac Ablation, Cholecystectomy, Pacemaker Additional Past Surgical History / Comment(s): LEFT KNEE Past Anesthesia/Blood Transfusion Reactions: No Reported Reaction Type of Cardiac Device: Permanent Pacemaker Device Placement Date:: Unknown Smoking Status: Never smoker - Past Family History Brother(s) Family Medical History: Myocardial Infarction ([place]) Father Family Medical History: Myocardial Infarction ([place]) Medications and Allergies Home Medications Medication Instructions Recorded Confirmed Type Aspirin 81 mg PO DAILY 09/21/14 04/29/18 History Multivitamins, Thera [Multivitamin 1 tab PO DAILY 10/14/14 04/29/18 History (formulary)] [place]-3 Fatty Acids [[place]-3] 1,000 mg PO DAILY 10/14/14 04/29/18 History Citalopram Hydrobromide [CeleXA] 20 mg PO DAILY 04/01/18 04/29/18 History Docusate [Colace] 100 mg PO DAILY 04/01/18 04/29/18 History Donepezil [Aricept] 5 mg PO DAILY 04/01/18 04/29/18 History Empagliflozin [Jardiance] 25 mg PO DAILY 04/01/18 04/29/18 History Insulin Detemir [Levemir] 25 unit SQ HS 04/01/18 04/29/18 History Mylanta 30 ml PO Q6H PRN 04/01/18 04/29/18 History Acetaminophen [Tylenol Extra 500 mg PO Q6H PRN 04/29/18 04/29/18 History Strength] Magnesium Hydroxide [Milk of 800 mg PO Q72H PRN 04/29/18 04/29/18 History Magnesia] Repaglinide [Prandin] 0.5 mg PO DAILY 04/29/18 04/29/18 History Allergies Allergy/AdvReac Type Severity Reaction Status Date / Time acetaminophen [From [place]] Allergy Unknown Verified 04/29/18 13:26 adhesive Allergy Unknown Verified 04/29/18 13:26 atenolol Allergy Unknown Verified 04/29/18 13:26 clindamycin Allergy Unknown Verified 04/29/18 13:26 clopidogrel bisulfate Allergy Unknown Verified 04/29/18 13:26 [From Plavix] codeine Allergy Unknown Verified 04/29/18 13:26 digoxin Allergy Unknown Verified 04/29/18 13:26 diltiazem HCl [From Cardizem] Allergy Unknown Verified 04/29/18 13:26 diphenhydramine HCl Allergy Anaphylaxis Verified 04/29/18 13:26 [From Benadryl] erythromycin base Allergy Unknown Verified 04/29/18 13:26 flecainide acetate Allergy Unknown Verified 04/29/18 13:26 [From Tambocor] glimepiride Allergy Rash/Hives Verified 04/29/18 13:26 glipizide Allergy Unknown Verified 04/29/18 13:26 hydrocodone bitartrate Allergy Unknown Verified 04/29/18 13:26 [From [place]] lisinopril Allergy Unknown Verified 04/29/18 13:26 lorazepam [From Ativan] Allergy Unknown Verified 04/29/18 13:26 metformin Allergy Unknown Verified 04/29/18 13:26 metoprolol succinate Allergy Unknown Verified 04/29/18 13:26 [From Toprol XL] Penicillins Allergy Rash/Hives Verified 04/29/18 13:26 prednisolone Allergy Rash/Hives Verified 04/29/18 13:26 prochlorperazine Allergy Unknown Verified 04/29/18 13:26 propafenone HCl Allergy Unknown Verified 04/29/18 13:26 [From Rythmol] propoxyphene napsylate Allergy Swelling Verified 04/29/18 13:26 [From Darvocet-N] propranolol Allergy Unknown Verified 04/29/18 13:26 pseudoephedrine HCl Allergy Unknown Verified 04/29/18 13:26 [From Sudafed] rosiglitazone maleate Allergy Unknown Verified 04/29/18 13:26 [From Avandia] Tnrqdpy-Okg-Pmt Reductase Allergy Unknown Verified 04/29/18 13:26 Inhibitor Sulfa (Sulfonamide Allergy Rash/Hives Verified 04/29/18 13:26 Antibiotics) verapamil HCl [From [place]] Allergy Unknown Verified 04/29/18 13:26 warfarin sodium Allergy Rash/Hives Verified 04/29/18 13:26 [From Coumadin] altaryl Allergy Unknown Uncoded 04/01/18 18:00 antihistamines Allergy Unknown Uncoded 04/01/18 18:39 Physical Examination - Vital Signs Vital Signs: Vital Signs Temp Pulse Pulse Resp BP BP Pulse Ox 04/30/18 04:00 98.9 F 72 18 125/68 95 04/30/18 03:09 18 04/29/18 23:15 98.2 F 69 18 174/73 94 L 04/29/18 20:08 98.8 F 67 17 147/66 97 04/29/18 18:00 70 18 144/94 96 04/29/18 17:30 64 18 135/58 96 04/29/18 17:00 64 18 144/58 97 04/29/18 16:30 66 18 141/74 96 04/29/18 16:00 65 18 151/60 99 04/29/18 15:30 64 18 140/89 96 04/29/18 15:00 62 18 138/60 94 L 04/29/18 14:30 64 16 102/55 93 L 04/29/18 13:30 69 18 116/56 78 L 04/29/18 13:00 67 18 127/56 94 L 04/29/18 12:56 98.2 F 65 18 127/56 96 Intake and Output 04/29/18 04/30/18 04/30/18 22:59 06:59 14:59 Intake Total 375 Balance 375 Intake: IV 375 Sodium Chloride 0.9% 1, 375 000 ml @ 75 mls/hr IV . [id number] Rx#:[id number] Other: Weight 63 kg Gen. appearance: Alert to self, in no apparent distress Head: Atraumatic normocephalic, normal inspection Eyes: Well appearance, PERRL, EOMI. Ear nose and throat: Normal exam, mucous membranes moist Neck: Normal inspection. Absent tenderness, lymphadenopathy Respiratory: No increased work of breathing. Cardiovascular: Regular rate, normal rhythm GIabdominal: No tenderness no guarding Extremities: Moves all extremities Neurological: Alert and oriented 1, cranial nerves II through XII intact, no unilateral lateralizing weakness, no seizure activity noted on physical exam, no pronator drift and no nystagmus. Psychological: Confused Results - Laboratory Findings CBC and BMP: 04/29/18 13:11 04/29/18 13:11 Abnormal Lab Findings: Abnormal Labs 04/29/18 04/29/18 04/29/18 13:11 13:11 13:11 WBC 11.3 H Potassium 5.3 H Glucose 200 H POC Glucose (mg/dL) Total Creatine Kinase <20 L Troponin I 0.104 H* Albumin 3.4 L Urine Appearance Urine Protein Urine Glucose (UA) Urine Blood Ur Leukocyte Esterase Urine RBC Urine WBC Urine WBC Clumps Urine Bacteria 04/29/18 04/29/18 04/29/18 14:25 17:00 20:51 WBC Potassium Glucose POC Glucose (mg/dL) 184 H Total Creatine Kinase Troponin I 0.080 H* Albumin Urine Appearance Turbid H Urine Protein 1+ H Urine Glucose (UA) 4+ H Urine Blood Large H Ur Leukocyte Esterase Large H Urine RBC 26 H Urine WBC >182 H Urine WBC Clumps Many H Urine Bacteria Many H 04/30/18 01:07 WBC Potassium Glucose POC Glucose (mg/dL) Total Creatine Kinase Troponin I 0.188 H* Albumin Urine Appearance Urine Protein Urine Glucose (UA) Urine Blood Ur Leukocyte Esterase Urine RBC Urine WBC Urine WBC Clumps Urine Bacteria Assessment and Plan (1) Infectious encephalopathy Narrative/Plan: Patient's urinalysis is highly reflective of infectious encephalopathy due to significant WBC presence as well as bacteria. Patient is currently on IV antibiotics. Patient did have finding on CT brain which does cause concern for possible thrombosis and CT angiogram will be considered/ordered if patient's BUN and creatinine allow for imaging. EEG is pending. If CT angiogram is unable to be obtained, carotid Doppler will be ordered. Continue to monitor the patient notify neurology with any other neurological status changes. Continue to correct underlying etiology. Neuro checks every shift. Current Visit: Yes Status: Acute Code(s): G93.49 - OTHER ENCEPHALOPATHY; B99.9 - UNSPECIFIED INFECTIOUS DISEASE SNOMED Code(s): 49503612 (2) Altered mental status Narrative/Plan: Likely secondary to infectious encephalopathy Current Visit: Yes Status: Acute Code(s): R41.82 - ALTERED MENTAL STATUS, UNSPECIFIED SNOMED Code(s): 279039424 (3) Urinary tract infection Narrative/Plan: Defer to primary team Continue to correct underlying etiology Current Visit: Yes Status: Acute Code(s): N39.0 - URINARY TRACT INFECTION, SITE NOT SPECIFIED SNOMED Code(s): 57240415 (4) Elevated troponin Narrative/Plan: Defer to primary team Current Visit: Yes Status: Acute Code(s): R74.8 - ABNORMAL LEVELS OF OTHER SERUM ENZYMES SNOMED Code(s): 514672359 Plan: STATUS: Neurology will continue to follow and provide updates as needed or warranted. Feel free to contact our office with any questions. I discussed the patients history, physical exam, diagnostic testing, lab work and imaging with Dr Leos prior to implementing the plan above. He agrees with the plan as implemented prior to implementation.
[2018-04-30] MEDS ORDERED: NON-FORMULARY DRUG (Omega-3 Fatty Acids [Omega-3] 1,000 MG) PO SCH (09:00)
[2018-04-30] MEDS: DONEPEZIL 5 MG TAB PO SCH (09:02)
[2018-04-30] MEDS: REPAGLINIDE 1 MG TAB PO SCH (09:02)
[2018-04-30] MEDS: CITALOPRAM HYDROBROMIDE 20 MG TAB PO SCH (09:03)
[2018-04-30] MEDS: ASPIRIN 81 MG PO SCH (09:03)
[2018-04-30] MEDS: MULTIVITAMINS, THERA 1 EACH TAB PO SCH (09:03)
[2018-04-30] MEDS: DOCUSATE 100 MG CAP PO SCH (09:03)
[2018-04-30 12:11] LABS: Glucose,Whole Blood 73 mg/dL (75-99)
--- NOTE | 2018-04-30 12:19 | P.CRDCN ---
History of Present Illness Consult date: 04/30/18 Requesting physician: Thomas Sequeira Reason for Consult (text): Abnormal troponins Chief complaint: Mental status changes History of present illness: This is a pleasant 82-year-old female who has a known history of chronic persistent atrial fibrillation, diabetes, hypertension, hyperlipidemia, dementia, prior history of CVA, history of pacemaker implantation, who was brought to the hospital because of mental status changes. Most of the history was obtained from the medical record as the patient is not currently alert and oriented more than one. Cardiology consultation was obtained because of abnormal troponin values. Skin of the brain performed on arrival here did not reveal any acute intracranial hemorrhage or mass effect. The A1 segment of the right anterior cerebral artery does appear to be somewhat hyperdense, this could be correlated with CTA her MRI and MRA to suggest 4 thrombosis. Degenerative and nonspecific white matter changes. Chest x-ray shows chronic changes with no acute cardiopulmonary process. EKG shows a paced rhythm with underlying atrial fibrillation. Blood pressure 160/60 this morning, heart rate in the 70s, 95% on room air. White blood cell count 11.3, hemoglobin 12.9, platelet count 285. Sodium 139, potassium 5.3, BUN 17, creatinine 0.7. Troponins 0.10, 0.08, 0.18. Urine is positive for leukocyte Estrace, large amount of blood in the urine, +1 protein and glucose, many bacteria. Drug screen negative. Patient has been initiated on IV antibiotics. Past Medical History Past Medical History: Coronary Artery Disease (CAD), Heart Failure, CVA/TIA, Dementia, Diabetes Mellitus, Hyperlipidemia, Hypertension, Osteoarthritis (OA) Additional Past Medical History / Comment(s): bladder incont,neuropathy, dermatitis,past falls(per [facility] paperwork, pt not ambulatory), uti, per 2015 summary-past afib History of Any Multi-Drug Resistant Organisms: None Reported Past Surgical History: Cardiac Ablation, Cholecystectomy, Pacemaker Additional Past Surgical History / Comment(s): LEFT KNEE Past Anesthesia/Blood Transfusion Reactions: No Reported Reaction Type of Cardiac Device: Permanent Pacemaker Device Placement Date:: Unknown Smoking Status: Never smoker - Past Family History Brother(s) Family Medical History: Myocardial Infarction ([place]) Father Family Medical History: Myocardial Infarction ([place]) Medications and Allergies Home Medications Medication Instructions Recorded Confirmed Type Aspirin 81 mg PO DAILY 09/21/14 04/29/18 History Multivitamins, Thera [Multivitamin 1 tab PO DAILY 10/14/14 04/29/18 History (formulary)] [place]-3 Fatty Acids [[place]-3] 1,000 mg PO DAILY 10/14/14 04/29/18 History Citalopram Hydrobromide [CeleXA] 20 mg PO DAILY 04/01/18 04/29/18 History Docusate [Colace] 100 mg PO DAILY 04/01/18 04/29/18 History Donepezil [Aricept] 5 mg PO DAILY 04/01/18 04/29/18 History Empagliflozin [Jardiance] 25 mg PO DAILY 04/01/18 04/29/18 History Insulin Detemir [Levemir] 25 unit SQ HS 04/01/18 04/29/18 History Mylanta 30 ml PO Q6H PRN 04/01/18 04/29/18 History Acetaminophen [Tylenol Extra 500 mg PO Q6H PRN 04/29/18 04/29/18 History Strength] Magnesium Hydroxide [Milk of 800 mg PO Q72H PRN 04/29/18 04/29/18 History Magnesia] Repaglinide [Prandin] 0.5 mg PO DAILY 04/29/18 04/29/18 History Allergies Allergy/AdvReac Type Severity Reaction Status Date / Time acetaminophen [From Mikado] Allergy Unknown Verified 04/29/18 13:26 adhesive Allergy Unknown Verified 04/29/18 13:26 atenolol Allergy Unknown Verified 04/29/18 13:26 clindamycin Allergy Unknown Verified 04/29/18 13:26 clopidogrel bisulfate Allergy Unknown Verified 04/29/18 13:26 [From Plavix] codeine Allergy Unknown Verified 04/29/18 13:26 digoxin Allergy Unknown Verified 04/29/18 13:26 diltiazem HCl [From Cardizem] Allergy Unknown Verified 04/29/18 13:26 diphenhydramine HCl Allergy Anaphylaxis Verified 04/29/18 13:26 [From Benadryl] erythromycin base Allergy Unknown Verified 04/29/18 13:26 flecainide acetate Allergy Unknown Verified 04/29/18 13:26 [From Tambocor] glimepiride Allergy Rash/Hives Verified 04/29/18 13:26 glipizide Allergy Unknown Verified 04/29/18 13:26 hydrocodone bitartrate Allergy Unknown Verified 04/29/18 13:26 [From Mikado] lisinopril Allergy Unknown Verified 04/29/18 13:26 lorazepam [From Ativan] Allergy Unknown Verified 04/29/18 13:26 metformin Allergy Unknown Verified 04/29/18 13:26 metoprolol succinate Allergy Unknown Verified 04/29/18 13:26 [From Toprol XL] Penicillins Allergy Rash/Hives Verified 04/29/18 13:26 prednisolone Allergy Rash/Hives Verified 04/29/18 13:26 prochlorperazine Allergy Unknown Verified 04/29/18 13:26 propafenone HCl Allergy Unknown Verified 04/29/18 13:26 [From Rythmol] propoxyphene napsylate Allergy Swelling Verified 04/29/18 13:26 [From Darvocet-N] propranolol Allergy Unknown Verified 04/29/18 13:26 pseudoephedrine HCl Allergy Unknown Verified 04/29/18 13:26 [From Sudafed] rosiglitazone maleate Allergy Unknown Verified 04/29/18 13:26 [From Avandia] Dssueih-Ioy-Ndi Reductase Allergy Unknown Verified 04/29/18 13:26 Inhibitor Sulfa (Sulfonamide Allergy Rash/Hives Verified 04/29/18 13:26 Antibiotics) verapamil HCl [From Calan] Allergy Unknown Verified 04/29/18 13:26 warfarin sodium Allergy Rash/Hives Verified 04/29/18 13:26 [From Coumadin] altaryl Allergy Unknown Uncoded 04/01/18 18:00 antihistamines Allergy Unknown Uncoded 04/01/18 18:39 Physical Exam Vitals: Vital Signs Temp Pulse Pulse Resp BP BP Pulse Ox 04/30/18 08:00 98.4 F 71 18 161/65 95 04/30/18 04:00 98.9 F 72 18 125/68 95 04/30/18 03:09 18 04/29/18 23:15 98.2 F 69 18 174/73 94 L 04/29/18 20:08 98.8 F 67 17 147/66 97 04/29/18 18:00 70 18 144/94 96 04/29/18 17:30 64 18 135/58 96 04/29/18 17:00 64 18 144/58 97 04/29/18 16:30 66 18 141/74 96 04/29/18 16:00 65 18 151/60 99 04/29/18 15:30 64 18 140/89 96 04/29/18 15:00 62 18 138/60 94 L 18 14:30 64 16 102/55 93 L 04/29/18 13:30 69 18 116/56 78 L 04/29/18 13:00 67 18 127/56 94 L 04/29/18 12:56 98.2 F 65 18 127/56 96 Intake and Output 04/29/18 04/30/18 04/30/18 22:59 06:59 14:59 Intake Total 375 150 Balance 375 150 Intake: IV 375 150 Sodium Chloride 0.9% 1, 375 150 000 ml @ 75 mls/hr IV . [id number] ONE Rx#:[id number] Other: Weight 63 kg PHYSICAL EXAMINATION: GENERAL: 82-year-old female in no acute distress at the time of my examination HEENT: Head is atraumatic, normocephalic. Pupils equal, round. Sclera anicteric. Conjunctiva are clear. Mucous membranes of the mouth are moist. Neck is supple. There is no elevated jugular venous pressure. No carotid bruit is heard. HEART EXAMINATION: [Heart S1, S2 systolic ejection murmur heard .] CHEST EXAMINATION:[ Lungs are clear to auscultation and precussion. No chest wall tenderness is noted on palpation or with deep breathing.] ABDOMEN: [ Soft, nontender. Bowel sounds are heard. No organomegaly noted]. EXTREMITIES:[ 2+ peripheral pulses with no evidence of peripheral edema and no calf tenderness noted]. NEUROLOGIC [patient is awake, alert and oriented X one.] . Results 04/29/18 13:11 04/29/18 13:11 Cardiac Enzymes 04/29/18 04/29/18 04/29/18 Range/Units 13:11 13:11 17:00 AST 17 (14-36) U/L CK-MB (CK-2) 0.5 (0.0-2.4) ng/mL Troponin I 0.104 H* 0.080 H* (0.000-0.034) ng/mL 04/30/18 Range/Units 01:07 AST (14-36) U/L CK-MB (CK-2) (0.0-2.4) ng/mL Troponin I 0.188 H* (0.000-0.034) ng/mL Coagulation 04/29/18 Range/Units 13:11 PT 10.3 (9.0-12.0) sec APTT 26.4 (22.0-30.0) sec CBC 04/29/18 Range/Units 13:11 WBC 11.3 H (3.8-10.6) k/uL RBC 4.25 (3.80-5.40) m/uL Hgb 12.9 (11.4-16.0) gm/dL Hct 40.1 (34.0-46.0) % Plt Count 285 (150-450) k/uL Comprehensive Metabolic Panel 04/29/18 Range/Units 13:11 Sodium 139 (137-145) mmol/L Potassium 5.3 H (3.5-5.1) mmol/L Chloride 105 (98-107) mmol/L Carbon Dioxide 24 (22-30) mmol/L BUN 17 (7-17) mg/dL Creatinine 0.78 (0.52-1.04) mg/dL Glucose 200 H (74-99) mg/dL Calcium 9.3 (8.4-10.2) mg/dL AST 17 (14-36) U/L ALT 19 (9-52) U/L Alkaline Phosphatase 61 (38-126) U/L Total Protein 7.6 (6.3-8.2) g/dL Albumin 3.4 L (3.5-5.0) g/dL Current Medications Generic Name Dose Route Start Last Admin Trade Name Freq PRN Reason Stop Dose Admin Al Hydroxide/Mg Hydroxide 30 ml 04/29/18 21:14 Maalox PO Q6H PRN Nausea Aspirin 81 mg 04/30/18 09:00 04/30/18 09:03 Aspirin PO 81 mg DAILY GLENN Administration Citalopram Hydrobromide 20 mg 04/30/18 09:00 04/30/18 09:03 Celexa PO 20 mg DAILY GLENN Administration Docusate Sodium 100 mg 04/30/18 09:00 04/30/18 09:03 Colace PO 100 mg DAILY GLENN Administration Donepezil HCl 5 mg 04/30/18 09:00 04/30/18 09:02 Aricept PO 5 mg DAILY GLENN Administration Insulin Detemir 25 unit 04/29/18 21:30 04/29/18 22:00 Levemir SQ 25 unit HS GLENN Administration Magnesium Hydroxide 800 mg 04/29/18 21:14 Milk Of Magnesia PO Q72H PRN Constipation Multivitamins 1 each 04/30/18 12:00 04/30/18 09:03 Theragran PO 1 each 1200 GLENN Administration Non-Formulary Medication 25 mg 04/30/18 09:00 04/30/18 08:55 Empagliflozin [Jardiance] PO Not Given DAILY GLENN Repaglinide 0.5 mg 04/30/18 09:00 04/30/18 09:02 Prandin PO 0.5 mg DAILY GLENN Administration Intake and Output 04/29/18 04/30/18 04/30/18 22:59 06:59 14:59 Intake Total 375 150 Balance 375 150 Intake: IV 375 150 Sodium Chloride 0.9% 1, 375 150 000 ml @ 75 mls/hr IV . [id number] ONE Rx#:[id number] Other: Weight 63 kg 04/29/18 13:11 04/29/18 13:11 Assessment and Plan Plan: Assessment and plan #1 mental status changes, patient has history of dementia, history of CVA, could also be secondary to UTI. Neuro is following. #2 diabetes #3 hypertension #4 dementia #5 chronic persistent atrial fibrillation, patient is not on anticoagulation, could be secondary to dementia and risk for falls #6 abnormal troponin not consistent with acute coronary syndrome Plan We will obtain an echocardiogram with Doppler study. Continue aspirin. Continue antibiotics for UTI. Further recommendations to follow. DNP note has been reviewed, I agree with a documented findings and plan of care. Patient was seen and examined.
[2018-04-30] MEDS ORDERED: HEPARIN SODIUM,PORCINE 10,000 UNIT/ML 1 ML VIAL IV ONE (14:20)
[2018-04-30] MEDS ORDERED: HEPARIN SODIUM,PORCINE 5,000 UNIT/ML 1 ML VIAL IV PRN (14:20)
--- NOTE | 2018-04-30 14:21 | CT ---
EXAMINATION TYPE: CT angio head neck DATE OF EXAM: 04/30/2018 COMPARISON: Correlation CT 04/29/2018 HISTORY: 82-year-old female confusion, Altered mental status TECHNIQUE: Contiguous axial scanning of the head and neck performed with IV Contrast, patient injecte d with 65 mL of Isovue 370. Coronal/sagittal MIP reconstructions performed. 3-D reconstructions gener ated on a dedicated independent workstation. CT DLP: 364.1 mGycm Automated exposure control for dose reduction was used. FINDINGS: Neck: Enlarged main pulmonary arteries measuring up to 2.0 cm. Pulmonary emboli are noted at the distal ravi n pulmonary arteries as well as the bilateral lower lobe branches. Mild emphysema. No discrete microc alcifications with shortness of breath. 1.6 cm nodule in the left lobe of thyroid gland can be further evaluated with thyroid ultrasound. Nonspecific mildly enlarged 1.1 cm right paratracheal lymph node. Scattered atherosclerotic calcifications are present throughout the arch vessels. This results in moderate focal stenosis of the proximal right subclavian artery. Mild left-sided narrowing at the origin of the left vertebral artery. The left vertebral artery is do minant. Both vessels remain patent throughout their course. Right common carotid artery is patent. Mild atherosclerotic narrowing upper right common carotid randy ry secondary to plaque. Moderate atheromatous calcifications of the right bifurcation with borderline moderate, persistent at herosclerotic stenosis in the right carotid bulb.. The left common carotid artery shows eccentric atherosclerotic plaque with mild, less than 50% narrow ing superiorly. Mild to moderate osteophytic change of the left bifurcation with mild, less than 50% atherosclerotic narrowing in the carotid bulb. Incidentally, there is trapped fluid seen in the right mastoid air cells. Head: Distal V4 segment right vertebral artery is hypoplastic. Basilar artery is patent. Moderate atherosclerotic calcifications of the bilateral carotid siphons possible moderate to severe atherosclerotic narrowing the left carotid siphon. There is no opacification of the A1 segment left anterior cerebral artery There is moderate to severe focal narrowing at the origin of the M1 segment right middle cerebral art michael and a possible small 3 mm aneurysm projecting posteriorly from the clinoid/supraclinoid segment r ight ICA, axial image 18. Otherwise, no aneurysmal change seen. IMPRESSION: NECK: 1. NOTE BILATERAL ACUTE PULMONARY EMBOLI SEEN INVOLVING THE DISTAL MAIN PULMONARY ARTERIES AND BILATE RAL LOWER LOBE PULMONARY ARTERIES. Critical findings called to nurse Toño in [facility] at 2:15 PM. 2. MODERATE, APPROXIMATELY 50% ATHEROSCLEROTIC STENOSIS RIGHT CAROTID BULB AND 2 AREAS OF FOCAL MILD, LESS THAN 50% NARROWING ON THE LEFT INVOLVING THE UPPER LEFT COMMON CAROTID ARTERY AND THE LEFT TREJO TID BULB. 3. DOMINANT LEFT VERTEBRAL ARTERY. THE DISTAL V4 SEGMENT OF THE RIGHT VERTEBRAL ARTERY BECOMES HYPOPL ASTIC. 4. MODERATE STENOSIS AT THE PROXIMAL RIGHT SUBCLAVIAN ARTERY. 5. 1.6 CM LEFT THYROID NODULE CAN BE ASSESSED WITH THYROID ULTRASOUND. HEAD: 1. HYPOPLASTIC V4 SEGMENT RIGHT VERTEBRAL ARTERY. 2. THE A1 SEGMENT LEFT ANTERIOR CEREBRAL ARTERY IS NONOPACIFIED AND COULD BE OCCLUDED OR CONGENITALLY APLASTIC. CORRELATE FOR ANY NEUROLOGIC SYMPTOMS RELATING TO THE LEFT TITO TERRITORY. 3. MODERATE TO SEVERE FOCAL ATHEROSCLEROTIC NARROWING AT THE ORIGIN OF THE M1 SEGMENT RIGHT MIDDLE CE REBRAL ARTERY. 4. PROMINENT ATHEROSCLEROTIC CHANGES OF THE BILATERAL CAROTID SIPHONS, THERE MAY BE MODERATE TO SEVER E ATHEROSCLEROTIC NARROWING IN THE LEFT CAROTID SIPHON. 5. POSSIBLE TINY 3 MM ANEURYSM VERSUS INFUNDIBULUM POSTERIOR RIGHT SUPRACLINOID ICA.
[2018-04-30] MEDS: HEPARIN SOD,PORK IN 0.45% NACL 25,000 UNIT in 0.45% NACL 1 250ML.BAG IV SCH (14:43)
[2018-04-30 15:01] LABS: Basophils # (A) 0.1 k/uL (0-0.2); Basophils % (A) 1 %; Eosinophils # (A) 0.1 k/uL (0-0.7); Eosinophils % (A) 1 %; HCT 40.8 % (34.0-46.0); HGB 12.5 gm/dL (11.4-16.0); Lymphocytes # (A) 1.5 k/uL (1.0-4.8); Lymphocytes % (A) 18 %; MCH 29.5 pg (25.0-35.0); MCHC 30.5 g/dL (31.0-37.0); MCV 96.7 fL (80.0-100.0); Mean Platelet Volume 6.7; Monocytes # (A) 0.7 k/uL (0-1.0); Monocytes % (A) 8 %; Neutrophils # (A) 6.3 k/uL (1.3-7.7); Neutrophils % (A) 71 %; Platelet Count 238 k/uL (150-450); RBC 4.22 m/uL (3.80-5.40); RDW 12.6 % (11.5-15.5); WBC 8.8 k/uL (3.8-10.6)
[2018-04-30 15:06] LABS: Partial Thromboplastin Time 26.1 sec (22.0-30.0); Prothrombin Time 10.3 sec (9.0-12.0)
--- NOTE | 2018-04-30 17:30 | US ---
EXAMINATION TYPE: US thyroid st tissue head/neck DATE OF EXAM: 04/30/2018 COMPARISON: CLINICAL HISTORY: thyroid nodule. nodule per CT. Poor historian. GLAND SIZE: Right Lobe: 4.7 x 1.7 x 2.0 cm Overall Parenchyma: heterogenous Left Lobe: 4.1 x 1.8 x 1.5 cm Overall Parenchyma: heterogeneous Isthmus Thickness: 0.6 cm NODULES RIGHT: # of nodules measured on right: 0 LEFT: # of nodules measured on left: 1 1. 2.6 x 2.0 x 1.2 cm hypoechoic mixed nodule at the mid/lower pole with well-defined margins. This nodule is wider than tall and shows intranodular vascularity. No prior ISTHMUS: # of nodules measured in the isthmus: 0 Bilateral neck scanned, no evidence of lymphadenopathy. IMPRESSION: Oval-shaped hypoechoic nodule in the lower pole left thyroid lobe is somewhat vascular. The oval sha pe suggests a benign etiology. The old CT scan of the neck from 10/14/2014 is reviewed and I think this nodule is present on the old exam and not changed in size.
--- NOTE | 2018-04-30 17:34 | USB ---
EXAMINATION TYPE: US breast limited LT DATE OF EXAM: 04/30/2018 COMPARISON: NONE CLINICAL HISTORY: hematoma. Left breast visual palpable abnormality about the size of a tennis ball, taking up the whole breast. Poor historian. Palpable scanned. Large heterogenous mixed lesion seen = 7.3 x 5.9 x 4.4 cm IMPRESSION: There is a large complex fluid collection in the area of concern consistent with large h ematoma that contains blood clot.
[2018-04-30 17:35] LABS: Glucose,Whole Blood 110 mg/dL (75-99)
--- NOTE | 2018-04-30 20:05 | HP ---
HISTORY AND PHYSICAL CHIEF COMPLAINT: 82-year-old white female, history of chronic atrial fibrillation, diabetes, hypertension, dyslipidemia, dementia, was admitted to the hospital with altered mental status. She also has a pacemaker. She came, cardiology consult due to elevated troponin. She was thought to have UTI with metabolic encephalopathy, possible stroke. CTA of the carotid arteries was ordered, which showed some acute pulmonary embolism for which she was started on IV heparin and Pulmonary was consulted. Cardiology saw her for cardiac workup today. PAST MEDICAL HISTORY: Coronary artery disease, pacemaker, dementia, diabetes mellitus, hypertension, dyslipidemia, osteoarthritis, bladder incontinence, neuropathy, dermatitis, frequent falls, atrial fibrillation. PAST SURGICAL HISTORY: Cardiac ablation, cholecystectomy, pacemaker, left knee replacement. SOCIAL HISTORY: Never smoked. FAMILY HISTORY: Brother with myocardial infarction. HOME MEDICINES: 1. Multivitamin. 2. Aspirin 81 daily. 3. [place]-3 1000 daily. 4. Colace 100 daily. 5. Aricept 5 mg daily. 6. Jardiance 25 mg daily. 7. Levemir 25 daily. 8. Mylanta 30 mL q6. 9. Extra Strength Tylenol p.r.n. 10.Hydroxide 800 mg Q 72 hours. 11.Prandin 0.5 mg daily. ALLERGIES: NORCO, ADHESIVES, ATENOLOL, CLINDAMYCIN, BENADRYL, DIGOXIN, PLAVIX, LOPERAMIDE, GLIPIZIDE, NORCO, LISINOPRIL, ATIVAN, METFORMIN, TOPROL XL, PENICILLINS, PROCHLORPERAZINE, RYTHMOL, DARVOCET. REVIEW OF SYSTEMS: Fourteen point review of systems negative except for mentioned in HPI. PHYSICAL EXAMINATION: VITAL SIGNS: Temp 98.4, pulse 69, pulse 72, respiratory 16 to 18, blood pressure is 120 to 140s over 60s to 80s, O2 94 to 96% on room air. Cardiovascular S1, S2. LUNGS: Transmitted upper sounds. Psych: Poor mood and affect. Hematology negative Homans. Vascular: 1+ dorsalis pedis posterior pulses. Integument: Poor skin turgor. LUNGS: Scattered rhonchi and wheeze. Hematology: Negative Homans. LABORATORY DATA: White count is 11.3, hemoglobin is 12.9 sodium 139, potassium 5.3. ASSESSMENT: 1. History of dementia. 2. History of cerebrovascular accident. 3. Urinary tract infection. 4. Metabolic encephalopathy with altered mental status. 5. Possible pulmonary embolism. 6. Chronic persistent atrial fibrillation. 7. Dementia. 8. Hypertension. 9. Possible pulmonary embolism. We will do Heparin. Get pulmonary consulted. Please see further orders. MMODL / IJN: [id number] /
[2018-04-30 20:22] LABS: Hemoglobin A1C 7.8 % (4.0-6.0)
[2018-04-30 20:40] LABS: Glucose,Whole Blood 113 mg/dL (75-99)
[2018-04-30] MEDS: INSULIN DETEMIR 100 UNIT/ML 10 ML VIAL SQ SCH (21:05)
--- NOTE | 2018-05-01 02:08 | CONS ---
CONSULTATION DATE OF SERVICE: 04/30/2018. REASON FOR CONSULTATION: Abdominal urinary tract infection. HISTORY OF PRESENT ILLNESS: The patient is an 82-year-old female who was brought into the ER at [facility] by the EMS when they were called in for a patient having mental status changes. Apparently the patient is normally awake, alert, oriented x1. However yesterday since morning, the patient has not been eating which is very abnormal for her. There is no clear history of any fever or any chills. No fever on arrival to the ER has been noticed. Highest temperature has been 99.1. The patient white count was mildly elevated at 11.3. The UA was positive with more than 1-2 WBC and many bacteria. Unfortunately, urine cultures were not obtained. She did receive a dose of Rocephin in the ER. She has been admitted to the hospital for possible urinary tract infection. Infectious Disease was consulted for further recommendation regarding antibiotic therapy. At the time of my evaluation, the patient was pleasantly confused. The patient denied any headache to me. No chest pain. No shortness of breath or cough. No abdominal pain or any diarrhea. REVIEW OF SYSTEMS: Positive points have been mentioned in HPI. Rest of the systems have been negative. PAST MEDICAL HISTORY: Diabetes mellitus, CVA, TIA, and osteoarthritis. PAST SURGICAL HISTORY: Cholecystectomy, pacemaker placement. SOCIAL HISTORY: No history of smoking, drinking or drug use. FAMILY HISTORY: Brother and father history of [place]. ALLERGIES: TO CLINDAMYCIN, CODEINE, DIGOXIN, DILTIAZEM, PENICILLIN. MEDICATION: Medications include the patient is currently on Maalox, aspirin, Celexa, Colace, Aricept, heparin, and Levemir, Theragran, . PHYSICAL EXAMINATION: Blood pressure is 130/58 with a pulse of 72, temperature of 99. She is 94% on room air. General description is an elderly female, lying in bed in no distress. No tachypnea or accessory muscles of respiration use. HEENT: Shows no pallor or scleral icterus. Oral mucosa membranes are dry. No pharyngeal erythema or thrush. Neck trachea central. No thyromegaly. Lungs unlabored breathing. Clear to auscultation anteriorly. No wheeze or crackles. Heart S1, S2. Regular rate and rhythm. ABDOMEN: Soft, no tenderness. No guarding or rigidity. EXTREMITIES: No edema of the feet. Skin Examination: No rash or mass palpable. Neurological: Patient is awake, alert, oriented x1. No agitation was noticed. LABS: Hemoglobin is 12.5, white count of 11.3, BUN of 17, creatinine 0.78. Troponin slightly elevated. Urine has been positive with large leukocyte esterase with more than 1 to 2 WBC with many bacteria. Unfortunately, no urine cultures were done. DIAGNOSTIC IMPRESSION AND PLAN: 1. Patient admitted to the hospital with mental status changes which is more likely multifactorial with possible component of urinary tract infection, likely from enteric gram-negative pathogen. 2. Patient who does have multiple antibiotic allergies that will limit the number of antibiotics that could be safe to use. PLAN: 1. Rocephin 1 g IV piggyback daily. 2. Gentle IV fluid. 3. We will follow her clinical condition and culture to further adjust medication if needed. Thank you for this consultation. Will follow the patient along with you. MMODL / IJN: [id number] /
[2018-05-01 06:27] LABS: Basophils # (A) 0.1 k/uL (0-0.2); Basophils % (A) 1 %; Eosinophils # (A) 0.3 k/uL (0-0.7); Eosinophils % (A) 3 %; HCT 36.9 % (34.0-46.0); HGB 11.6 gm/dL (11.4-16.0); Lymphocytes # (A) 2.9 k/uL (1.0-4.8); Lymphocytes % (A) 30 %; MCH 29.5 pg (25.0-35.0); MCHC 31.4 g/dL (31.0-37.0); MCV 94.1 fL (80.0-100.0); Mean Platelet Volume 7.2; Monocytes # (A) 0.8 k/uL (0-1.0); Monocytes % (A) 8 %; Neutrophils # (A) 5.3 k/uL (1.3-7.7); Neutrophils % (A) 56 %; Platelet Count 225 k/uL (150-450); RBC 3.92 m/uL (3.80-5.40); RDW 12.5 % (11.5-15.5); WBC 9.5 k/uL (3.8-10.6)
[2018-05-01 06:51] LABS: Glucose,Whole Blood 110 mg/dL (75-99)
[2018-05-01] MEDS: NON-FORMULARY DRUG (Empagliflozin [Jardiance] 25 MG) PO SCH (08:46)
[2018-05-01] MEDS: REPAGLINIDE 1 MG TAB PO SCH (08:53)
[2018-05-01] MEDS: MULTIVITAMINS, THERA 1 EACH TAB PO SCH (08:54)
[2018-05-01] MEDS: CITALOPRAM HYDROBROMIDE 20 MG TAB PO SCH (08:54)
[2018-05-01] MEDS: DOCUSATE 100 MG CAP PO SCH (08:54)
[2018-05-01] MEDS: DONEPEZIL 5 MG TAB PO SCH (08:54)
[2018-05-01] MEDS: ASPIRIN 81 MG PO SCH (08:57)
[2018-05-01] MEDS: HEPARIN SOD,PORK IN 0.45% NACL 25,000 UNIT in 0.45% NACL 1 250ML.BAG IV SCH (09:17)
[2018-05-01 12:19] LABS: Glucose,Whole Blood 76 mg/dL (75-99)
--- NOTE | 2018-05-01 13:24 | P.PN ---
Subjective Progress Note Date: 05/01/18 This is a pleasant 82-year-old female who has a known history of chronic persistent atrial fibrillation, diabetes, hypertension, hyperlipidemia, dementia, prior history of CVA, history of pacemaker implantation, who was brought to the hospital because of mental status changes. Most of the history was obtained from the medical record as the patient is not currently alert and oriented more than one. Cardiology consultation was obtained because of abnormal troponin values. Skin of the brain performed on arrival here did not reveal any acute intracranial hemorrhage or mass effect. The A1 segment of the right anterior cerebral artery does appear to be somewhat hyperdense, this could be correlated with CTA her MRI and MRA to suggest 4 thrombosis. Degenerative and nonspecific white matter changes. Chest x-ray shows chronic changes with no acute cardiopulmonary process. EKG shows a paced rhythm with underlying atrial fibrillation. Blood pressure 160/60 this morning, heart rate in the 70s, 95% on room air. White blood cell count 11.3, hemoglobin 12.9, platelet count 285. Sodium 139, potassium 5.3, BUN 17, creatinine 0.7. Troponins 0.10, 0.08, 0.18. Urine is positive for leukocyte Estrace, large amount of blood in the urine, +1 protein and glucose, many bacteria. Drug screen negative. Patient has been initiated on IV antibiotics. 05/01:hemoglobin is 11.6.vital signs are stable, blood pressure 120/57. Pulse ox 93% on room air. Heart rate is running in the 60s and 70s.CAT scan of the neck revealed probable benign left thyroid lobe nodule.breast ultrasound left showed large complex fluid collection in the area of concern consistent with large hematoma.Dr. Luevano is following for treatment for urinary tract infection. Neurology is following the patient. Patient remains oriented to self. She denies any new complaints. Echocardiogram will be ordered. Objective - Vital Signs Vital signs: Vital Signs Temp 97.5 F L 05/01/18 11:35 Pulse 66 05/01/18 11:35 Resp 18 05/01/18 11:35 BP 128/57 05/01/18 11:35 Pulse Ox 93 L 05/01/18 11:35 Intake & Output 04/30/18 05/01/18 05/01/18 18:59 06:59 18:59 Intake Total 295.2 226.356 234.19 Balance 295.2 226.356 234.19 Weight 62 kg Intake: IV 150 150 Sodium Chloride 0.9% 1, 150 150 000 ml @ 75 mls/hr IV . [id number] [facility] Rx#:[id number] Intake, IV Titration 145.2 76.356 234.19 Amount Heparin Sod,Pork in 0.45% 45.2 76.356 134.19 NaCl 25,000 unit In 0.45 % NaCl 1 250ml.bag @ 18 UNITS/KG/HR 11.34 mls/hr IV .Q22H3M [facility] Rx#: [id number] cefTRIAXone 1,000 mg In 100 100 Sodium Chloride 0.9% 50 ml @ 100 mls/hr IVPB Q24HR [facility] Rx#:[id number] - Exam GENERAL: 82-year-old female in no acute distress at the time of examination HEENT: Head is atraumatic, normocephalic. Pupils equal, round. Sclera anicteric. Conjunctiva are clear. Mucous membranes of the mouth are moist. Neck is supple. There is no elevated jugular venous pressure. No carotid bruit is heard. HEART EXAMINATION: [Heart S1, S2 systolic ejection murmur heard .] CHEST EXAMINATION:[ Lungs are clear to auscultation and precussion. No chest wall tenderness is noted on palpation or with deep breathing.] ABDOMEN: [ Soft, nontender. Bowel sounds are heard. No organomegaly noted]. EXTREMITIES:[ 2+ peripheral pulses with no evidence of peripheral edema and no calf tenderness noted]. NEUROLOGIC [patient is awake, alert and oriented X one.] - Labs CBC & Chem 7: 05/01/18 05:53 04/29/18 13:11 Labs: Abnormal Lab Results - Last 24 Hours (Table) 04/29/18 04/30/18 04/30/18 Range/Units 13:11 14:28 17:19 MCHC 30.5 L (31.0-37.0) g/dL APTT (22.0-30.0) sec POC Glucose (mg/dL) 110 H (75-99) mg/dL Hemoglobin A1c 7.8 H (4.0-6.0) % 04/30/18 04/30/18 05/01/18 Range/Units 20:24 20:35 05:53 MCHC (31.0-37.0) g/dL APTT 67.0 H 52.8 H (22.0-30.0) sec POC Glucose (mg/dL) 113 H (75-99) mg/dL Hemoglobin A1c (4.0-6.0) % 05/01/18 Range/Units 06:23 MCHC (31.0-37.0) g/dL APTT (22.0-30.0) sec POC Glucose (mg/dL) 110 H (75-99) mg/dL Hemoglobin A1c (4.0-6.0) % Microbiology - Last 24 Hours (Table) 04/29/18 17:00 Blood Culture - Preliminary Blood No Growth after 24 hours Assessment and Plan Plan: Assessment and plan #1 mental status changes, patient has history of dementia, history of CVA, could also be secondary to UTI. Neuro and infectious disease are following. #2 diabetes #3 hypertension #4 dementia #5 chronic persistent atrial fibrillation, patient is not on anticoagulation, could be secondary to dementia and risk for falls #6 abnormal troponin not consistent with acute coronary syndrome Plan We will obtain an echocardiogram with Doppler study. Continue aspirin. Continue antibiotics for UTI. Further recommendations to follow. Nurse Practitioner note has been reviewed, I agree with a documented findings and plan of care. Patient was seen and examined.
--- NOTE | 2018-05-01 13:49 | CONS ---
CONSULTATION Taylor Kim is an 82-year-old female who presented to the ED with weakness. She subsequently was seen in the ED and admitted for further evaluation. She had been complaining of some chest pain and shortness of breath as well. She has a history of dementia and does not give much incredible history. She has a LONG LIST OF ALLERGIES which were reviewed and are part of the ED chart. Please refer to that. PAST MEDICAL HISTORY: Past medical history is positive for coronary artery disease for which she has had a pacemaker, history of dementia, history of diabetes mellitus type 2, hypertension, dyslipidemia, osteoarthritis, dermatitis, frequent falls, atrial fibrillation, left breast surgery with possible implant, cardiac ablation, pacemaker, left knee replacement. FAMILY HISTORY: Positive for myocardial infarction in her brother. SOCIAL HISTORY: Patient is a never smoker. She does not drink alcohol excessively. MEDICATIONS: Her medications prior to admission were Mylanta, milk of magnesia, acetaminophen, Prandin, omega-3 fatty acids, multivitamin, Levemir insulin, Jardiance, Aricept, docusate, citalopram, and aspirin. REVIEW OF SYMPTOMS: Review of systems noncontributory. PHYSICAL EXAMINATION: VITAL SIGNS: Blood pressure 128/57, respiratory rate of 18, pulse rate is 66, temperature 97.5. HEENT reveals pupils are equal. Chest reveals occasional rhonchi with decreased breath sounds in the bases. Cardiovascular system reveals S1, S2. No S3, no S4. Short systolic murmur is heard. There is a breast like firm mass like area in the left breast, which on ultrasound is a large heterogeneous mixed lesion. Abdomen is soft. There is no pedal edema. CT scan of the chest was done part of an angiographic CT which showed evidence of bilateral pulmonary emboli that are somewhat large and the labs were reviewed. IMPRESSION: At this time: 1. Acute bilateral pulmonary emboli. 2. Dementia. 3. Left breast mass, etiology which is unclear. 4. Previous cardiac arrhythmia with pacemaker placement. 5. Dementia. At this point in time from a pulmonary standpoint, would keep her on intravenous heparin after which she apparently has been symptomatically better as well. Continue her on her current medications and switch her to oral anticoagulants in the next few days if she is hemodynamically stable. We will follow her during her hospital stay. Appreciate the opportunity to participate in the care of this patient. MMODL / IJN: [id number] /
[2018-05-01 17:21] LABS: Glucose,Whole Blood 87 mg/dL (75-99)
--- NOTE | 2018-05-01 17:46 | P.PN ---
Subjective Progress Note Date: 05/01/18 Principal diagnosis: altered mental status Neurology is following an 82-year-old female for altered mental status. patient was brought to the ED by EMS when she was found to be alert and oriented 1 from her long-term care facility. Patient was at breakfast and was not eating which was highly abnormal. Patient did have a follow proximally a month ago and had a workup in the ED at that time. Patient was unable to give history in the ED. Patient did not have a staff #2 accompanying her to provide any further information. CT of the brain recommended CT angiogram or MRI, MRA and other abnormal findings as previously stated. CT angiogram was performed and noted bilateral acute pulmonary emboli in the distal main pulmonary arteries and bilateral lower lobe pulmonary arteries. Critical finding noted. Pulmonary is on consult at this time. CTA head and neck: Moderate approximately 50% atherosclerotic stenosis right carotid bulb and 2 areas of focal mild less than 50% narrowing on the left involving the upper left common carotid artery and the left carotid bulb. Dominant left vertebral artery. The distal V4 segment of the right vertebral artery becomes hypoplastic. Moderate stenosis at the proximal right subclavian artery. 1.6 cm left thyroid nodule can be assessed with thyroid ultrasound. There is moderate to severe focal narrowing at the origin of the M1 segment right middle cerebral artery and a possible small 3 mm aneurysm projecting posteriorly from the clinoid/supraclinoid segment right ICA, axial image 18. Otherwise no aneurysmal change seen.- Recommend vascular consult to evaluate changes. On contact, patient is AOx1, resting in bed in no acute distress. Patient responds to verbal commands but is very confused. Objective - Vital Signs Vital signs: Vital Signs Temp 97.1 F L 05/01/18 16:35 Pulse 76 05/01/18 16:35 Resp 18 05/01/18 16:35 BP 140/63 05/01/18 16:35 Pulse Ox 94 L 05/01/18 16:35 Intake & Output 04/30/18 05/01/18 05/01/18 18:59 06:59 18:59 Intake Total 295.2 226.356 284.19 Balance 295.2 226.356 284.19 Weight 62 kg Intake: IV 150 150 Sodium Chloride 0.9% 1, 150 150 000 ml @ 75 mls/hr IV . [id number] [facility] Rx#:[id number] Intake, IV Titration 145.2 76.356 284.19 Amount Heparin Sod,Pork in 0.45% 45.2 76.356 134.19 NaCl 25,000 unit In 0.45 % NaCl 1 250ml.bag @ 18 UNITS/KG/HR 11.34 mls/hr IV .Q22H3M [facility] Rx#: [id number] cefTRIAXone 1,000 mg In 100 150 Sodium Chloride 0.9% 50 ml @ 100 mls/hr IVPB Q24HR [facility] Rx#:[id number] - Exam General appearance: Alert & oriented x1, no apparent distress. Head: Atraumatic, normocephalic, normal inspection Eyes: PERRLA, EOMI. Ear, nose and throat: Normal exam, mucous membranes moist Neck: Normal inspection, absent tenderness, lymphadenopathy. Respiratory: No increased work of breathing Cardiovascular: Regular rate, rhythm GI/abdominal: No guarding, no rigidity Extremities: moves all extremities Neurological: cranial nerves II through XII intact no lateralizing weakness, bilateral upper and lower extremity generalized weakness no seizure activity noted on physical exam no pronator drift and no nystagmus. Strength: moves all 4 extremities bilateral upper extremities 3+4- out of 5 Bilateral lower extremities 3+4- out of 5 Sensation: Left lower extremity: normal Right lower extremity: normal Left upper extremity: normal Right upper extremity:normal Psychological: confused - Labs CBC & Chem 7: 05/01/18 05:53 04/29/18 13:11 Labs: Abnormal Lab Results - Last 24 Hours (Table) 04/29/18 04/30/18 04/30/18 Range/Units 13:11 17:19 20:24 APTT 67.0 H (22.0-30.0) sec POC Glucose (mg/dL) 110 H (75-99) mg/dL Hemoglobin A1c 7.8 H (4.0-6.0) % 04/30/18 05/01/18 05/01/18 Range/Units 20:35 05:53 06:23 APTT 52.8 H (22.0-30.0) sec POC Glucose (mg/dL) 113 H 110 H (75-99) mg/dL Hemoglobin A1c (4.0-6.0) % Microbiology - Last 24 Hours (Table) 04/29/18 17:00 Blood Culture - Preliminary Blood No Growth after 24 hours Assessment and Plan (1) Infectious encephalopathy Narrative/Plan: Patient's urinalysis is highly reflective of infectious encephalopathy due to significant WBC presence as well as bacteria. Patient is currently on IV antibiotics. Patient did have finding on CT brain which does cause concern for possible thrombosis and CT angiogram plan completed with significant changes noted as stated in HPI. Consults have been requested and specialty providers are actively involved. EEG is pending. neurochecks as previously implemented. continue to correct underlying etiology Current Visit: Yes Status: Acute Code(s): G93.49 - OTHER ENCEPHALOPATHY; B99.9 - UNSPECIFIED INFECTIOUS DISEASE SNOMED Code(s): 79700515 (2) Altered mental status Narrative/Plan: Likely secondary to infectious encephalopathy and patient's known history of dementia. Current Visit: Yes Status: Acute Code(s): R41.82 - ALTERED MENTAL STATUS, UNSPECIFIED SNOMED Code(s): 621485587 (3) Urinary tract infection Narrative/Plan: Defer to primary team Continue to correct underlying etiology Current Visit: Yes Status: Acute Code(s): N39.0 - URINARY TRACT INFECTION, SITE NOT SPECIFIED SNOMED Code(s): 75267354 (4) Elevated troponin Narrative/Plan: Defer to primary team Current Visit: Yes Status: Acute Code(s): R74.8 - ABNORMAL LEVELS OF OTHER SERUM ENZYMES SNOMED Code(s): 828050486 (5) Dementia Narrative/Plan: Continue medications as implemented. Medications to be reassessed once infectious porcess is corrected. Recommend implementation of Namenda rather than increasing Aricept. If patient is vascular dementia in etiology versus Alzheimer's, current recommendations state that for vascular dementia, Namenda should be started versus Aricept as the primary drug of choice for treatment of vascular dementia. Recommended dosing with vascular dementia is a minimum of a 5 milligrams twice a day. In Alzheimer's the reverse would be preferred. Current Visit: Yes Status: Acute Code(s): F03.90 - UNSPECIFIED DEMENTIA WITHOUT BEHAVIORAL DISTURBANCE SNOMED Code(s): 16681847 Plan: STATUS: Neurology will follow on an as-needed basis. patient is discharged, have patient follow-up in our office within 10-14 days post discharge for further follow-up. We can begin to manage patient's dementia related medications in the office at that time as well as conduct further follow-up evaluation regarding her encephalopathic status. I discussed the patients history, physical exam, diagnostic testing, lab work and imaging with Dr Leos prior to implementing the plan above. He agrees with the plan as implemented prior to implementation.
[2018-05-01 20:51] LABS: Glucose,Whole Blood 177 mg/dL (75-99)
[2018-05-01] MEDS: INSULIN DETEMIR 100 UNIT/ML 10 ML VIAL SQ SCH (21:50)
--- NOTE | 2018-05-01 23:19 | PN ---
PROGRESS NOTE DATE OF SERVICE: 05/01/2018. SUBJECTIVE: An 82-year-old white female who was admitted by EMS for metabolic encephalopathy and urinary tract infection, also found to have acute pulmonary embolism and bilateral emboli in the distal main pulmonary arteries and lower lobe pulmonary arteries. CTA of the head and neck showed 50% blockage and narrowing in the common carotid artery. Thyroid nodule was seen on ultrasound, chronic and benign most likely. Ultrasound of the hematoma from a previous fall at the detention. Vascular consult is pending for possible carotid arteries. Remains on blood thinner in the meantime. OBJECTIVE: Temperature 97.1, pulse 76, respiratory rate 16 to 18, blood pressure 140/63, O2 of 94%. Cardiovascular S1-S2. Lungs scattered rhonchi and wheeze. Hematology negative Homans. Speech is improving. LABS: Reviewed. ASSESSMENT: 1. Urinary tract infection with metabolic encephalopathy. 2. Elevated troponin. 3. Dementia. 4. Carotid stenosis. 5. Altered mental status. 6. Urinary tract infection. PLAN: Remain on blood thinners. Await Pulmonary consult. Await further treatment. MMODL / IJN: [id number] /
--- NOTE | 2018-05-01 23:28 | PN ---
PROGRESS NOTE DATE OF SERVICE: 05/01/2018. REASON FOR FOLLOWUP: Urinary tract infection. INTERVAL HISTORY: The patient is afebrile. She has been more awake and alert today. She is breathing comfortably. Denies having any chest pain, shortness of breath or cough. No abdominal pain. No diarrhea. PHYSICAL EXAMINATION: Blood pressure 130/63, pulse of 69, temperature of 98. She is 94% on room air. General description is an elderly female, lying in bed in no distress. Respiratory system: Unlabored breathing, clear to auscultation anteriorly. Heart S1, S2. Regular rate and rhythm. Abdomen soft, no tenderness. LABS: Hemoglobin 11.6, white count of 9.5. Blood culture has been negative. Unfortunately, no urine cultures were done. DIAGNOSTIC IMPRESSION AND PLAN: Patient admitted to the hospital with mental status changes which is likely multifactorial, does have a component of urinary tract infection with positive urine. The patient seemed to be responding to Rocephin that will be continued for now and continue supportive care. MMODL / IJN: [id number] /
[2018-05-02] MEDS: HEPARIN SOD,PORK IN 0.45% NACL 25,000 UNIT in 0.45% NACL 1 250ML.BAG IV SCH (06:07)
[2018-05-02 06:19] LABS: Glucose,Whole Blood 74 mg/dL (75-99)
[2018-05-02 07:43] LABS: Basophils # (A) 0.1 k/uL (0-0.2); Basophils % (A) 1 %; Eosinophils # (A) 0.6 k/uL (0-0.7); Eosinophils % (A) 7 %; HGB 11.8 gm/dL (11.4-16.0); Lymphocytes # (A) 3.1 k/uL (1.0-4.8); Lymphocytes % (A) 35 %; MCH 29.7 pg (25.0-35.0); Mean Platelet Volume 7.3; Monocytes # (A) 0.8 k/uL (0-1.0); Monocytes % (A) 9 %; Neutrophils # (A) 3.9 k/uL (1.3-7.7); Neutrophils % (A) 46 %; Platelet Count 196 k/uL (150-450); RBC 3.98 m/uL (3.80-5.40); RDW 12.5 % (11.5-15.5); WBC 8.7 k/uL (3.8-10.6)
[2018-05-02 08:20] LABS: ALT 18 U/L (9-52); AST 22 U/L (14-36); Albumin 2.8 g/dL (3.5-5.0); Alkaline Phosphatase 51 U/L (38-126); Anion Gap 5 mmol/L; Blood Urea Nitrogen 12 mg/dL (7-17); Calcium 8.8 mg/dL (8.4-10.2); Carbon Dioxide 25 mmol/L (22-30); Chloride 109 mmol/L (98-107); Glucose 67 mg/dL (74-99); Potassium 4.2 mmol/L (3.5-5.1); Sodium 139 mmol/L (137-145); Total Bilirubin 0.3 mg/dL (0.2-1.3); Total Protein 6.4 g/dL (6.3-8.2)
[2018-05-02] MEDS: REPAGLINIDE 1 MG TAB PO SCH (09:59)
[2018-05-02] MEDS: MULTIVITAMINS, THERA 1 EACH TAB PO SCH (09:59)
[2018-05-02] MEDS: DOCUSATE 100 MG CAP PO SCH (09:59)
[2018-05-02] MEDS: CITALOPRAM HYDROBROMIDE 20 MG TAB PO SCH (09:59)
[2018-05-02] MEDS: DONEPEZIL 5 MG TAB PO SCH (09:59)
[2018-05-02] MEDS: ASPIRIN 81 MG PO SCH (09:59)
[2018-05-02] MEDS: NON-FORMULARY DRUG (Empagliflozin [Jardiance] 25 MG) PO SCH (10:14)
--- NOTE | 2018-05-02 10:26 | CONS ---
CONSULTATION This is an 82-year-old female. She has been admitted to [facility] with history of mental status changes. No history of motor deficit. Patient has dementia. 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 MEDICAL HISTORY: History of coronary artery disease, pacemaker, dementia, diabetes mellitus, hypertension, bladder incontinence. SURGICAL HISTORY: Cardiac ablation, cholecystectomy, pacemaker placement, and left knee replacement. PHYSICAL EXAMINATION: The patient was seen in the room. Patient has dementia, did not see any evidence of motor weakness of upper and lower extremity. ABDOMEN: Soft, nontender. IMPRESSION: 1. History of dementia. 2. CT scan showed also patient has bilateral pulmonary embolism for which she on she is on heparin. 3. Carotid ultrasound shows 50% stenosis. At this point, patient is not a candidate for any surgical intervention and no evidence of any critical stenosis noted of both carotid artery. Will follow with you. MMODL / IJN: [id number] /
[2018-05-02 11:22] LABS: Glucose,Whole Blood 86 mg/dL (75-99)
--- NOTE | 2018-05-02 14:55 | ECHOF ---
Referral Reason:LVF MEASUREMENTS -------- HEIGHT: 157.5 cm WEIGHT: 60.8 kg BP: 131/60 IVSd: 1.6 cm (0.6 - 1.1) LVIDd: 3.1 cm (3.9 - 5.3) LVPWd: 1.3 cm (0.6 - 1.1) IVSs: 2.0 cm LVIDs: 2.4 cm LVPWs: 1.6 cm LA Diam: 4.1 cm (2.7 - 3.8) LAESV Index (A-L): 29.13 ml/m Ao Diam: 3.5 cm (2.0 - 3.7) AV Cusp: 0.9 cm (1.5 - 2.6) MV EXCURSION: 14.577 mm (> 18.000) MV EF SLOPE: 50 mm/s (70 - 150) EPSS: 0.6 cm MV E Amandeep: 0.76 m/s MV DecT: 279 ms MV A Amandeep: 1.24 m/s MV E/A Ratio: 0.61 AV maxP.54 mmHg AV meanP.22 mmHg RAP: 5.00 mmHg RVSP: 28.21 mmHg FINDINGS -------- Paced rhythm. This was a technically adequate study. The left ventricular size is normal. There is moderate concentric left ventricular hypertrophy. O verall left ventricular systolic function is low-normal with, an EF between 50 - 55 %. The right ventricle is normal in size. The left atrium is mildly dilated. LA is midly dilated 29-33ml/m2. The right atrial size is normal. There is mild aortic valve sclerosis. Peak/mean gradient across the Aortic Valve is 12.54mmHg / 7.2 2mmHg. The mitral valve leaflets are mildly thickened. Mild mitral annular calcification present. Mild m itral regurgitation is present. Mild tricuspid regurgitation present. There is no evidence of pulmonary hypertension. The right v entricular systolic pressure, as measured by Doppler, is 28.21mmHg. Trace/mild (physiologic) pulmonic regurgitation. The aortic root size is normal. There is no pericardial effusion. CONCLUSIONS -------- 1. The left ventricular size is normal. 2. There is moderate concentric left ventricular hypertrophy. 3. Overall left ventricular systolic function is low-normal with, an EF between 50 - 55 %. 4. The right ventricle is normal in size. 5. The left atrium is mildly dilated. 6. LA is midly dilated 29-33ml/m2. 7. The right atrial size is normal. 8. There is mild aortic valve sclerosis. 9. Peak/mean gradient across the Aortic Valve is 12.54mmHg / 7.22mmHg. 10. The mitral valve leaflets are mildly thickened. 11. Mild mitral annular calcification present. 12. Mild mitral regurgitation is present. 13. Mild tricuspid regurgitation present. 14. There is no evidence of pulmonary hypertension. 15. The right ventricular systolic pressure, as measured by Doppler, is 28.21mmHg. 16. Trace/mild (physiologic) pulmonic regurgitation. 17. The aortic root size is normal. 18. There is no pericardial effusion. MATERIAL DISPOSITION INSPECTOR: Reema Antonio RDCS
--- NOTE | 2018-05-02 15:10 | P.PN ---
Subjective Progress Note Date: 05/02/18 This 82-year-old female with chronic persistent atrial fibrillation, diabetes, hypertension, hyperlipidemia,. Prior history of CVA was admitted to the hospital with altered mental status. Patient is awake and communicates. Patient's echo Cardigan showed normal LV function. Carotid duplex study did not reveal any significant obstructive disease. She doesn't appear to be in acute distress. At this point we'll continue current medical therapy and will be following her on when necessary basis Objective - Vital Signs Vital signs: Vital Signs Temp 98.1 F 05/02/18 12:00 Pulse 73 05/02/18 12:00 Resp 16 05/02/18 12:00 BP 151/69 05/02/18 12:00 Pulse Ox 92 L 05/02/18 12:00 Intake & Output 05/01/18 05/02/18 05/02/18 18:59 06:59 18:59 Intake Total 504.19 636.25 420 Balance 504.19 636.25 420 Weight 61 kg Intake: Intake, IV Titration 284.19 236.25 Amount Heparin Sod,Pork in 0.45% 134.19 236.25 NaCl 25,000 unit In 0.45 % NaCl 1 250ml.bag @ 18 UNITS/KG/HR 11.34 mls/hr IV .Q22H3M [facility] Rx#: [id number] cefTRIAXone 1,000 mg In 150 Sodium Chloride 0.9% 50 ml @ 100 mls/hr IVPB Q24HR [facility] Rx#:[id number] Oral 220 400 420 Other: # Voids 2 3 - Exam GENERAL EXAM: Patient is alert and and doesn't appear to be in any acute distress HEENT: Normocephalic. Normal reaction of pupils, equal size, normal range of extraocular motion. No erythema or exudates in the throat. NECK: No masses, no nuchal rigidity. CHEST: No chest wall deformity. LUNGS: Equal air entry with no crackles or wheeze. HEART: S1 and S2 normal with no audible mumurs or gallops. Regular rhythm, femorals equal on both sides.. ABDOMEN: No hepatosplenomegaly, normal bowel sounds, no guarding or rigidity. SKIN: No rashes CENTRAL NERVOUS SYSTEM: No focal deficits. EXTREMITIES: No cyanosis, clubbing or edema. - Labs CBC & Chem 7: 05/02/18 06:24 05/02/18 06:24 Labs: Abnormal Lab Results - Last 24 Hours (Table) 05/01/18 05/02/18 05/02/18 Range/Units 20:49 06:14 06:24 APTT 54.9 H (22.0-30.0) sec Chloride (98-107) mmol/L Creatinine (0.52-1.04) mg/dL Glucose (74-99) mg/dL POC Glucose (mg/dL) 177 H 74 L (75-99) mg/dL Albumin (3.5-5.0) g/dL 05/02/18 Range/Units 06:24 APTT (22.0-30.0) sec Chloride 109 H (98-107) mmol/L Creatinine 0.50 L (0.52-1.04) mg/dL Glucose 67 L (74-99) mg/dL POC Glucose (mg/dL) (75-99) mg/dL Albumin 2.8 L (3.5-5.0) g/dL Microbiology - Last 24 Hours (Table) 04/29/18 17:00 Blood Culture - Preliminary Blood No Growth after 48 hours Assessment and Plan (1) Altered mental status Current Visit: Yes Status: Acute Code(s): R41.82 - ALTERED MENTAL STATUS, UNSPECIFIED SNOMED Code(s): 508224771 (2) Dementia Current Visit: Yes Status: Acute Code(s): F03.90 - UNSPECIFIED DEMENTIA WITHOUT BEHAVIORAL DISTURBANCE SNOMED Code(s): 73338002 (3) Elevated troponin Current Visit: Yes Status: Acute Code(s): R74.8 - ABNORMAL LEVELS OF OTHER SERUM ENZYMES SNOMED Code(s): 649663229 (4) Cerebrovascular accident Current Visit: No Status: Acute Onset Date: 12/02/14 Code(s): I63.9 - CEREBRAL INFARCTION, UNSPECIFIED SNOMED Code(s): 616459274 Plan: Continue current medical therapy. Increase activity. Physical therapy. We'll follow her as needed
[2018-05-02 16:29] LABS: Glucose,Whole Blood 97 mg/dL (75-99)
[2018-05-02] MEDS: INSULIN DETEMIR 100 UNIT/ML 10 ML VIAL SQ SCH (20:11)
[2018-05-02 20:34] LABS: Glucose,Whole Blood 92 mg/dL (75-99)
--- NOTE | 2018-05-02 20:56 | PN ---
PROGRESS NOTE SUBJECTIVE: 82-year-old white female had a consultation with a vascular surgeon who says no surgery needed at this time. She has 50% carotid artery stenosis. Discussed with the family her risk of falling and treatment of her for pulmonary embolism with Eliquis. She would need 2 person assist whenever she walks and do not walk on her own due to a frequent fall history and we will continue with Eliquis treatment and monitor for falls as she has significant bilateral pulmonary emboli. Family is in agreement with this. She is also being treated for metabolic encephalopathy and UTI. Vital signs stable, afebrile. CARDIOVASCULAR: S1, S2. LUNGS: Scattered rhonchi and wheeze. HEMATOLOGY: Negative Homans. VASCULAR: 2+ pedal edema. ASSESSMENT: 1. Bilateral pulmonary embolism. 2. Urinary tract infection with metabolic encephalopathy. Continue current treatments. Follow up in the next 24-48 hours. Possible discharge in next 2-3 days once the urine cultures are finalized and IV antibiotics are switched to oral antibiotics. Otherwise continue with Eliquis. Fall precautions discussed with the family and patient. MMODL / IJN: [id number] /
--- NOTE | 2018-05-02 22:29 | PN ---
PROGRESS NOTE DATE OF SERVICE: 05/02/2018 She was seen again on April2017. She seems to be about the same. She is not hypoxic on room air with an O2 saturation of 92%. She complains of no chest pain. Blood pressure is 151/69, respiratory rate is 16, pulse is 73, temperature 98.1. HEENT is unremarkable. Chest is clear. Cardiovascular system reveals an S1, S2. Abdomen is soft. There is pedal edema, right more than the left. IMPRESSION: 1. Bilateral massive pulmonary emboli. 2. Left breast area mass like lesion, etiology which is unclear. Continue IV heparin, have surgery further evaluate the patient regarding the left breast mass. Her prognosis at this time is fair. MMODL / IJN: [id number] /
--- NOTE | 2018-05-03 01:44 | PN ---
PROGRESS NOTE DATE OF SERVICE: 05/02/2018. REASON FOR FOLLOWUP: Urinary tract infection. INTERVAL HISTORY: The patient is currently afebrile. She is breathing comfortably. More awake and alert. Denies having any chest pain, shortness of breath or cough. No abdominal pain and no diarrhea. PHYSICAL EXAMINATION: Blood pressure is 132/66, pulse of 80, temperature 98.1, she is saturating 94% on room air. GENERAL DESCRIPTION: An elderly female, lying in bed in no distress. RESPIRATORY SYSTEM: Unlabored breathing. Clear to auscultation anteriorly. HEART: S1, S2. Regular rate and rhythm. ABDOMEN: Soft. EXTREMITIES: No edema of the feet. LABS: Hemoglobin is 11.2, white count 8.7, BUN of 12, creatinine 0.50. Blood culture has been negative. Unfortunately, no urine cultures were done. DIAGNOSTIC IMPRESSION AND PLAN: Patient admitted to the hospital with mental status changes which is likely multifactorial, possibly component of a urinary tract infection. The patient did have significantly positive, unfortunately no urine cultures were done. She is currently responding to Rocephin which will be continued for now. Family present at bedside. Their questions were answered. MMODL / IJN: [id number] /
[2018-05-03 05:58] LABS: Glucose,Whole Blood 125 mg/dL (75-99)
[2018-05-03 07:20] LABS: HCT 42.5 % (34.0-46.0); HGB 12.8 gm/dL (11.4-16.0); Hypochromasia Moderate; MCH 29.3 pg (25.0-35.0); MCHC 30.1 g/dL (31.0-37.0); MCV 97.3 fL (80.0-100.0); Platelet Count 218 k/uL (150-450); RBC 4.37 m/uL (3.80-5.40); RDW 12.5 % (11.5-15.5)
[2018-05-03 07:32] LABS: ALT 20 U/L (9-52); AST 25 U/L (14-36); Alkaline Phosphatase 49 U/L (38-126); Anion Gap 7 mmol/L; Blood Urea Nitrogen 11 mg/dL (7-17); Calcium 8.9 mg/dL (8.4-10.2); Carbon Dioxide 22 mmol/L (22-30); Chloride 111 mmol/L (98-107); Glucose 122 mg/dL (74-99); Potassium 4.6 mmol/L (3.5-5.1); Sodium 140 mmol/L (137-145); Total Bilirubin 0.4 mg/dL (0.2-1.3); Total Protein 6.8 g/dL (6.3-8.2)
--- NOTE | 2018-05-03 08:57 | P.GSCN ---
History of Present Illness Consult date: 05/03/18 History of present illness: This is a pleasant 82-year-old female who has a known history of chronic persistent atrial fibrillation, diabetes, hypertension, hyperlipidemia, dementia, prior history of CVA, history of pacemaker implantation, who was brought to the hospital because of mental status changes. Multiple consultants have evaluated the patient during her admission. The patient does suffer from dementia and is normally alert to self. It is difficult to obtain an appropriate history secondary to this. Most history has been gathered from medical record. On exam, the patient was found to have a left breast mass. Workup was completed with ultrasound. This area does appear to be a complex fluid collection that appears to be a hematoma. It is unclear whether the patient is up-to-date on mammograms. It is unclear whether the patient has had any trauma to the breast site. Per medical records, there is no obvious history of breast cancer. Review of Systems ROS unobtainable: due to mental status Past Medical History Past Medical History: Coronary Artery Disease (CAD), Heart Failure, CVA/TIA, Dementia, Diabetes Mellitus, Hyperlipidemia, Hypertension, Osteoarthritis (OA) Additional Past Medical History / Comment(s): bladder incont,neuropathy, dermatitis,past falls(per f paperwork, pt not ambulatory), uti, per 2015 summary-past afib History of Any Multi-Drug Resistant Organisms: None Reported Past Surgical History: Cardiac Ablation, Cholecystectomy, Pacemaker Additional Past Surgical History / Comment(s): LEFT KNEE Past Anesthesia/Blood Transfusion Reactions: No Reported Reaction Type of Cardiac Device: Permanent Pacemaker Device Placement Date:: Unknown Smoking Status: Never smoker - Past Family History Brother(s) Family Medical History: Myocardial Infarction ([place]) Father Family Medical History: Myocardial Infarction ([place]) Medications and Allergies Home Medications Medication Instructions Recorded Confirmed Type Aspirin 81 mg PO DAILY 09/21/14 04/29/18 History Multivitamins, Thera [Multivitamin 1 tab PO DAILY 10/14/14 04/29/18 History (formulary)] [place]-3 Fatty Acids [[place]-3] 1,000 mg PO DAILY 10/14/14 04/29/18 History Citalopram Hydrobromide [CeleXA] 20 mg PO DAILY 04/01/18 04/29/18 History Docusate [Colace] 100 mg PO DAILY 04/01/18 04/29/18 History Donepezil [Aricept] 5 mg PO DAILY 04/01/18 04/29/18 History Empagliflozin [Jardiance] 25 mg PO DAILY 04/01/18 04/29/18 History Insulin Detemir [Levemir] 25 unit SQ HS 04/01/18 04/29/18 History Mylanta 30 ml PO Q6H PRN 04/01/18 04/29/18 History Acetaminophen [Tylenol Extra 500 mg PO Q6H PRN 04/29/18 04/29/18 History Strength] Magnesium Hydroxide [Milk of 800 mg PO Q72H PRN 04/29/18 04/29/18 History Magnesia] Repaglinide [Prandin] 0.5 mg PO DAILY 04/29/18 04/29/18 History Allergies Allergy/AdvReac Type Severity Reaction Status Date / Time acetaminophen [From [place]] Allergy Unknown Verified 04/29/18 13:26 adhesive Allergy Unknown Verified 04/29/18 13:26 atenolol Allergy Unknown Verified 04/29/18 13:26 clindamycin Allergy Unknown Verified 04/29/18 13:26 clopidogrel bisulfate Allergy Unknown Verified 04/29/18 13:26 [From Plavix] codeine Allergy Unknown Verified 04/29/18 13:26 digoxin Allergy Unknown Verified 04/29/18 13:26 diltiazem HCl [From Cardizem] Allergy Unknown Verified 04/29/18 13:26 diphenhydramine HCl Allergy Anaphylaxis Verified 04/29/18 13:26 [From Benadryl] erythromycin base Allergy Unknown Verified 04/29/18 13:26 flecainide acetate Allergy Unknown Verified 04/29/18 13:26 [From Tambocor] glimepiride Allergy Rash/Hives Verified 04/29/18 13:26 glipizide Allergy Unknown Verified 04/29/18 13:26 hydrocodone bitartrate Allergy Unknown Verified 04/29/18 13:26 [From [place]] lisinopril Allergy Unknown Verified 04/29/18 13:26 lorazepam [From Ativan] Allergy Unknown Verified 04/29/18 13:26 metformin Allergy Unknown Verified 04/29/18 13:26 metoprolol succinate Allergy Unknown Verified 04/29/18 13:26 [From Toprol XL] Penicillins Allergy Rash/Hives Verified 04/29/18 13:26 prednisolone Allergy Rash/Hives Verified 04/29/18 13:26 prochlorperazine Allergy Unknown Verified 04/29/18 13:26 propafenone HCl Allergy Unknown Verified 04/29/18 13:26 [From Rythmol] propoxyphene napsylate Allergy Swelling Verified 04/29/18 13:26 [From Darvocet-N] propranolol Allergy Unknown Verified 04/29/18 13:26 pseudoephedrine HCl Allergy Unknown Verified 04/29/18 13:26 [From Sudafed] rosiglitazone maleate Allergy Unknown Verified 04/29/18 13:26 [From Avandia] Vnlnxja-Ddv-Fev Reductase Allergy Unknown Verified 04/29/18 13:26 Inhibitor Sulfa (Sulfonamide Allergy Rash/Hives Verified 04/29/18 13:26 Antibiotics) verapamil HCl [From Calan] Allergy Unknown Verified 04/29/18 13:26 warfarin sodium Allergy Rash/Hives Verified 04/29/18 13:26 [From Coumadin] altaryl Allergy Unknown Uncoded 04/01/18 18:00 antihistamines Allergy Unknown Uncoded 04/01/18 18:39 Surgical - Exam Osteopathic Statement: *. No significant issues noted on an osteopathic structural exam other than those noted in the History and Physical/Consult. Vital Signs Temp Pulse Resp BP Pulse Ox 98.2 F 65 18 127/56 96 04/29/18 12:56 04/29/18 12:56 04/29/18 12:56 04/29/18 12:56 04/29/18 12:56 - General no distress - Eyes normal ocular movement - Neck no masses, trachea midline - Respiratory No difficulty with respiration - Abdomen Soft, nontender, nondistended, no rebound, no guarding - Psychiatric oriented to person Breasts Right breast with no obvious palpable masses, no nipple discharge, no skin changes, no axillary adenopathy Left breast with palpable fluctuant lesion with no obvious drainage and no skin changes, no axillary adenopathy Results - Labs 05/03/18 06:37 05/03/18 06:37 Abnormal Lab Results - Last 24 Hours (Table) 05/03/18 05/03/18 05/03/18 Range/Units 05:57 06:37 06:37 MCHC 30.1 L (31.0-37.0) g/dL APTT (22.0-30.0) sec Chloride 111 H (98-107) mmol/L Glucose 122 H (74-99) mg/dL POC Glucose (mg/dL) 125 H (75-99) mg/dL Albumin 3.0 L (3.5-5.0) g/dL 05/03/18 Range/Units 06:37 MCHC (31.0-37.0) g/dL APTT 57.2 H (22.0-30.0) sec Chloride (98-107) mmol/L Glucose (74-99) mg/dL POC Glucose (mg/dL) (75-99) mg/dL Albumin (3.5-5.0) g/dL Microbiology - Last 24 Hours (Table) 04/29/18 17:00 Blood Culture - Preliminary Blood No Growth after 72 hours Diabetes panel 05/03/18 Range/Units 06:37 Sodium 140 (137-145) mmol/L Potassium 4.6 (3.5-5.1) mmol/L Chloride 111 H (98-107) mmol/L Carbon Dioxide 22 (22-30) mmol/L BUN 11 (7-17) mg/dL Creatinine 0.58 (0.52-1.04) mg/dL Glucose 122 H (74-99) mg/dL Calcium 8.9 (8.4-10.2) mg/dL AST 25 (14-36) U/L ALT 20 (9-52) U/L Alkaline Phosphatase 49 (38-126) U/L Total Protein 6.8 (6.3-8.2) g/dL Albumin 3.0 L (3.5-5.0) g/dL Calcium panel 05/03/18 Range/Units 06:37 Calcium 8.9 (8.4-10.2) mg/dL Albumin 3.0 L (3.5-5.0) g/dL Pituitary panel 05/03/18 Range/Units 06:37 Sodium 140 (137-145) mmol/L Potassium 4.6 (3.5-5.1) mmol/L Chloride 111 H (98-107) mmol/L Carbon Dioxide 22 (22-30) mmol/L BUN 11 (7-17) mg/dL Creatinine 0.58 (0.52-1.04) mg/dL Glucose 122 H (74-99) mg/dL Calcium 8.9 (8.4-10.2) mg/dL Adrenal panel 05/03/18 Range/Units 06:37 Sodium 140 (137-145) mmol/L Potassium 4.6 (3.5-5.1) mmol/L Chloride 111 H (98-107) mmol/L Carbon Dioxide 22 (22-30) mmol/L BUN 11 (7-17) mg/dL Creatinine 0.58 (0.52-1.04) mg/dL Glucose 122 H (74-99) mg/dL Calcium 8.9 (8.4-10.2) mg/dL Total Bilirubin 0.4 (0.2-1.3) mg/dL AST 25 (14-36) U/L ALT 20 (9-52) U/L Alkaline Phosphatase 49 (38-126) U/L Total Protein 6.8 (6.3-8.2) g/dL Albumin 3.0 L (3.5-5.0) g/dL - Imaging Additional studies: Ultrasound of breast reviewed, fluid collection complex Assessment and Plan (1) Breast lump in female Narrative/Plan: 82-year-old female with complex fluid collection in left breast - Currently, there is no active drainage at the site - Ultrasound was reviewed - Recommend warm compresses to the area, there are no obvious skin changes at this time and no plan for any acute surgical intervention of the site - If the site becomes symptomatic, plan for drainage of the area Current Visit: Yes Status: Acute Code(s): N63.0 - UNSPECIFIED LUMP IN UNSPECIFIED BREAST SNOMED Code(s): 69637323
[2018-05-03] MEDS: NON-FORMULARY DRUG (Empagliflozin [Jardiance] 25 MG) PO SCH (09:28)
[2018-05-03] MEDS: ASPIRIN 81 MG PO SCH (09:35)
[2018-05-03] MEDS: DOCUSATE 100 MG CAP PO SCH (09:35)
[2018-05-03] MEDS: CITALOPRAM HYDROBROMIDE 20 MG TAB PO SCH (09:36)
[2018-05-03] MEDS: DONEPEZIL 5 MG TAB PO SCH (09:36)
[2018-05-03] MEDS: REPAGLINIDE 1 MG TAB PO SCH (09:36)
[2018-05-03] MEDS: HEPARIN SOD,PORK IN 0.45% NACL 25,000 UNIT in 0.45% NACL 1 250ML.BAG IV SCH ×2 (09:39→21:02)
[2018-05-03 09:55] LABS: Eosinophils # (M) 0.63 k/uL (0-0.7); Lymphocytes # (M) 4.14 k/uL (1.0-4.8); Monocytes # (M) 0.81 k/uL (0-1.0); Neutrophils # (M) 3.42 k/uL (1.3-7.7); Neutrophils % (M) 38 %; Nucleated Red Blood Cells 0 /100 WBC (0-0); Poikilocytosis (M) Present; Total Cells Counted 100
[2018-05-03] MEDS: MULTIVITAMINS, THERA 1 EACH TAB PO SCH (11:58)
[2018-05-03 12:14] LABS: Glucose,Whole Blood 138 mg/dL (75-99)
[2018-05-03 17:17] LABS: Glucose,Whole Blood 105 mg/dL (75-99)
[2018-05-03 21:00] LABS: Glucose,Whole Blood 114 mg/dL (75-99)
[2018-05-03] MEDS: INSULIN DETEMIR 100 UNIT/ML 10 ML VIAL SQ SCH (21:01)
--- NOTE | 2018-05-04 02:28 | P.PN ---
Subjective Progress Note Date: 05/03/18 Principal diagnosis: Bilateral pulmonary embolism, dementia and Alzheimer's disease, left breast mass , coronary artery disease, CVA, diabetes mellitus, hypertension hypertensive cardiovascular disease, dyslipidemia, degenerative joint disease osteoarthritis 05/03/2018, patient seen eval examined during the rounds while covering for Dr. Thomas Sequeira, clinically patient has been doing relatively well patient has been evaluated by surgical services for a left breast mass, overall it appears to be hematoma, altered mental status, urinary tract infection, patient is being treated with IV heparin for bilateral pulmonary embolism Objective - Vital Signs Vital signs: Vital Signs Temp 96.9 F L 05/04/18 00:00 Pulse 66 05/04/18 00:00 Resp 16 05/04/18 00:00 BP 140/66 05/04/18 00:00 Pulse Ox 100 05/04/18 00:00 Intake & Output 05/03/18 05/03/18 05/04/18 06:59 18:59 06:59 Intake Total 490 446 Balance 490 446 Weight 60.4 kg Intake: IV 160 .9 160 Intake, IV Titration 250 50 Amount Heparin Sod,Pork in 0.45% 250 NaCl 25,000 unit In 0.45 % NaCl 1 250ml.bag @ 18 UNITS/KG/HR 11.34 mls/hr IV .[id number] [facility] Rx#: [id number] cefTRIAXone 1,000 mg In 50 Sodium Chloride 0.9% 50 ml @ 100 mls/hr IVPB Q24HR [facility] Rx#:[id number] Oral 240 236 Other: # Voids 2 2 - Exam GENERAL EXAM: Patient is alert and and doesn't appear to be in any acute distress HEENT: Normocephalic. Normal reaction of pupils, equal size, normal range of extraocular motion. No erythema or exudates in the throat. NECK: No masses, no nuchal rigidity. CHEST: No chest wall deformity. LUNGS: Equal air entry with no crackles or wheeze. HEART: S1 and S2 normal with no audible mumurs or gallops. Regular rhythm, femorals equal on both sides.. ABDOMEN: No hepatosplenomegaly, normal bowel sounds, no guarding or rigidity. SKIN: No rashes CENTRAL NERVOUS SYSTEM: No focal deficits. EXTREMITIES: No cyanosis, clubbing or edema. - Labs CBC & Chem 7: 05/03/18 06:37 05/03/18 06:37 Labs: Abnormal Lab Results - Last 24 Hours (Table) 05/03/18 05/03/18 05/03/18 Range/Units 05:57 06:37 06:37 MCHC 30.1 L (31.0-37.0) g/dL APTT (22.0-30.0) sec Chloride 111 H (98-107) mmol/L Glucose 122 H (74-99) mg/dL POC Glucose (mg/dL) 125 H (75-99) mg/dL Albumin 3.0 L (3.5-5.0) g/dL 05/03/18 05/03/18 05/03/18 Range/Units 06:37 12:12 16:57 MCHC (31.0-37.0) g/dL APTT 57.2 H (22.0-30.0) sec Chloride (98-107) mmol/L Glucose (74-99) mg/dL POC Glucose (mg/dL) 138 H 105 H (75-99) mg/dL Albumin (3.5-5.0) g/dL 05/03/18 Range/Units 20:57 MCHC (31.0-37.0) g/dL APTT (22.0-30.0) sec Chloride (98-107) mmol/L Glucose (74-99) mg/dL POC Glucose (mg/dL) 114 H (75-99) mg/dL Albumin (3.5-5.0) g/dL Microbiology - Last 24 Hours (Table) 04/29/18 17:00 Blood Culture - Preliminary Blood No Growth after 96 hours Assessment and Plan Assessment: Bilateral pulmonary embolism on IV heparin Left breast hematoma Altered mental status multifactorial associated with UTI versus advanced dementia History of CVA Elevated troponins Thyroid gland nodule Plan: Continue anticoagulation Continue broad-spectrum antibiotics Continue home medications Further recommendations pending follow clinical course closely Time with Patient: Greater than 30
[2018-05-04 06:00] LABS: Glucose,Whole Blood 120 mg/dL (75-99)
[2018-05-04 06:57] LABS: Basophils # (A) 0.1 k/uL (0-0.2); Basophils % (A) 1 %; Eosinophils # (A) 0.9 k/uL (0-0.7); Eosinophils % (A) 8 %; HCT 38.4 % (34.0-46.0); HGB 12.2 gm/dL (11.4-16.0); Lymphocytes # (A) 3.8 k/uL (1.0-4.8); Lymphocytes % (A) 37 %; MCH 29.5 pg (25.0-35.0); MCHC 31.9 g/dL (31.0-37.0); MCV 92.6 fL (80.0-100.0); Mean Platelet Volume 8.3; Monocytes # (A) 0.6 k/uL (0-1.0); Monocytes % (A) 6 %; Neutrophils # (A) 4.7 k/uL (1.3-7.7); Neutrophils % (A) 45 %; Platelet Count 185 k/uL (150-450); RBC 4.14 m/uL (3.80-5.40); RDW 12.6 % (11.5-15.5); WBC 10.5 k/uL (3.8-10.6)
--- NOTE | 2018-05-04 07:06 | PN ---
PROGRESS NOTE DATE OF SERVICE: 05/03/2018 REASON FOR FOLLOWUP: Urinary tract infection. INTERVAL HISTORY: The patient is currently afebrile. She was mostly pleasantly confused today, but denies having any headache or chest pain. No abdominal pain and no diarrhea. PHYSICAL EXAMINATION: On examination, blood pressure 142/70 with the pulse of 65, temperature 97.8. She is 98% on room air. General description is an elderly female, lying in bed in no distress. RESPIRATORY SYSTEM: Unlabored breathing, clear to auscultation anteriorly. HEART: S1, S2. Regular rate and rhythm. ABDOMEN: Soft, no tenderness. LABS: Hemoglobin is 12.8, white count 9.0 with a BUN of 11, creatinine 0.58. Blood culture has been negative. Unfortunately, no urine cultures were done. DIAGNOSTIC IMPRESSION AND PLAN: Patient admitted to the hospital with mental status change, which is likely multifactorial with a component of urinary tract infection. The patient did have significantly positive UA. Plan to continue with Rocephin for now. oral Ceftin on discharge. Continue with supportive care. MMODL / IJN: [id number] /
[2018-05-04] MEDS: DOCUSATE 100 MG CAP PO SCH (09:21)
[2018-05-04] MEDS: MULTIVITAMINS, THERA 1 EACH TAB PO SCH (09:21)
[2018-05-04] MEDS: CITALOPRAM HYDROBROMIDE 20 MG TAB PO SCH (09:21)
[2018-05-04] MEDS: ASPIRIN 81 MG PO SCH (09:22)
[2018-05-04] MEDS: REPAGLINIDE 1 MG TAB PO SCH (09:22)
[2018-05-04] MEDS: DONEPEZIL 5 MG TAB PO SCH (09:22)
[2018-05-04] MEDS: NON-FORMULARY DRUG (Empagliflozin [Jardiance] 25 MG) PO SCH (09:24)
[2018-05-04 12:01] LABS: Glucose,Whole Blood 129 mg/dL (75-99)
--- NOTE | 2018-05-04 14:09 | PN ---
PROGRESS NOTE DATE OF SERVICE: 05/04/2018 REASON FOR FOLLOWUP VISIT: Urinary tract infection. INTERVAL HISTORY: The patient is currently afebrile. She is breathing comfortably. Denies having any chest pain or shortness of breath. No nausea, vomiting, or any diarrhea. PHYSICAL EXAMINATION: Blood pressure 119/64, pulse of 69, temperature 98. General description is an elderly female, lying in bed in no distress. RESPIRATORY SYSTEM: Unlabored breathing, clear to auscultation anteriorly. HEART: S1, S2. Regular rate and rhythm. ABDOMEN: Soft, no tenderness. LABS: White count normal at 11.5, blood culture negative. No urine cultures were done. DIAGNOSTIC IMPRESSION AND PLAN: Patient admitted to the hospital with mental status changes, likely multifactorial, possible component of urinary tract infection. The patient did have positive UA; however, the patient received 5 days antibiotic which should be more than enough. Recommend no antibiotic on discharge. Family present at bedside. Their questions were answered. MMODL / IJN: [id number] /
--- NOTE | 2018-05-04 14:56 | P.PN ---
Subjective Progress Note Date: 05/04/18 Principal diagnosis: Bilateral pulmonary embolism, dementia and Alzheimer's disease, left breast mass , coronary artery disease, CVA, diabetes mellitus, hypertension hypertensive cardiovascular disease, dyslipidemia, degenerative joint disease osteoarthritis 05/04/2018, patient seen and evaluated examined care plan discussed with the patient's family at length, patient does have a history of fall but however family does understand that she needs anticoagulation given significant pulmonary embolism, currently patient remains on IV heparin tolerating fairly well labs reviewed medications reviewed, hemoglobin remained stable 05/03/2018, patient seen eval examined during the rounds while covering for Dr. Thomas Sequeira, clinically patient has been doing relatively well patient has been evaluated by surgical services for a left breast mass, overall it appears to be hematoma, altered mental status, urinary tract infection, patient is being treated with IV heparin for bilateral pulmonary embolism Objective - Vital Signs Vital signs: Vital Signs Temp 97.4 F L 05/04/18 08:00 Pulse 69 05/04/18 12:00 Resp 16 05/04/18 12:00 BP 119/64 05/04/18 12:00 Pulse Ox 94 L 05/04/18 08:00 Intake & Output 05/03/18 05/04/18 05/04/18 18:59 06:59 18:59 Intake Total 446 480 100 Balance 446 480 100 Weight 58 kg Intake: IV 160 .9 160 Intake, IV Titration 50 Amount cefTRIAXone 1,000 mg In 50 Sodium Chloride 0.9% 50 ml @ 100 mls/hr IVPB Q24HR [facility] Rx#:[id number] Oral 236 480 100 Other: # Voids 2 1 - Exam GENERAL EXAM: Patient is alert and and doesn't appear to be in any acute distress HEENT: Normocephalic. Normal reaction of pupils, equal size, normal range of extraocular motion. No erythema or exudates in the throat. NECK: No masses, no nuchal rigidity. CHEST: No chest wall deformity. LUNGS: Equal air entry with no crackles or wheeze. HEART: S1 and S2 normal with no audible mumurs or gallops. Regular rhythm, femorals equal on both sides.. ABDOMEN: No hepatosplenomegaly, normal bowel sounds, no guarding or rigidity. SKIN: No rashes CENTRAL NERVOUS SYSTEM: No focal deficits. EXTREMITIES: No cyanosis, clubbing or edema. - Labs CBC & Chem 7: 05/04/18 06:09 05/03/18 06:37 Labs: Abnormal Lab Results - Last 24 Hours (Table) 05/03/18 05/03/18 05/04/18 Range/Units 16:57 20:57 05:57 Eosinophils # (0-0.7) k/uL APTT (22.0-30.0) sec POC Glucose (mg/dL) 105 H 114 H 120 H (75-99) mg/dL 05/04/18 05/04/18 05/04/18 Range/Units 06:09 06:09 11:37 Eosinophils # 0.9 H (0-0.7) k/uL APTT 59.7 H (22.0-30.0) sec POC Glucose (mg/dL) 129 H (75-99) mg/dL Microbiology - Last 24 Hours (Table) 04/29/18 17:00 Blood Culture - Preliminary Blood No Growth after 96 hours Assessment and Plan Assessment: Bilateral pulmonary embolism on IV heparin, will DC it and start patient on Eliquis Left breast hematoma Altered mental status multifactorial associated with UTI versus advanced dementia History of CVA Elevated troponins Thyroid gland nodule Plan: Continue anticoagulation Continue broad-spectrum antibiotics Continue home medications Further recommendations pending follow clinical course closely Time with Patient: Greater than 30
[2018-05-04 17:08] LABS: Glucose,Whole Blood 109 mg/dL (75-99)
[2018-05-04] MEDS: APIXABAN 5 MG TAB PO SCH (21:07)
[2018-05-04 21:19] LABS: Glucose,Whole Blood 145 mg/dL (75-99)
[2018-05-04] MEDS: INSULIN DETEMIR 100 UNIT/ML 10 ML VIAL SQ SCH (22:08)
[2018-05-05 05:54] LABS: Glucose,Whole Blood 152 mg/dL (75-99)
[2018-05-05 07:02] LABS: Basophils # (A) 0.1 k/uL (0-0.2); Basophils % (A) 1 %; Eosinophils # (A) 0.6 k/uL (0-0.7); Eosinophils % (A) 6 %; HCT 38.6 % (34.0-46.0); HGB 12.3 gm/dL (11.4-16.0); Lymphocytes # (A) 2.6 k/uL (1.0-4.8); Lymphocytes % (A) 27 %; MCH 29.7 pg (25.0-35.0); Mean Platelet Volume 9.1; Monocytes # (A) 0.8 k/uL (0-1.0); Monocytes % (A) 8 %; Neutrophils # (A) 5.3 k/uL (1.3-7.7); Neutrophils % (A) 55 %; Platelet Count 161 k/uL (150-450); RBC 4.15 m/uL (3.80-5.40); RDW 12.9 % (11.5-15.5); WBC 9.6 k/uL (3.8-10.6)
[2018-05-05] MEDS: DOCUSATE 100 MG CAP PO SCH (08:31)
[2018-05-05] MEDS: CITALOPRAM HYDROBROMIDE 20 MG TAB PO SCH (08:33)
[2018-05-05] MEDS: ASPIRIN 81 MG PO SCH (08:33)
[2018-05-05] MEDS: DONEPEZIL 5 MG TAB PO SCH (08:33)
[2018-05-05] MEDS: REPAGLINIDE 1 MG TAB PO SCH (08:33)
[2018-05-05] MEDS: APIXABAN 5 MG TAB PO SCH ×2 (08:33→20:13)
[2018-05-05] MEDS: MULTIVITAMINS, THERA 1 EACH TAB PO SCH (08:33)
[2018-05-05 11:17] LABS: Glucose,Whole Blood 223 mg/dL (75-99)
[2018-05-05] MEDS: NON-FORMULARY DRUG (Empagliflozin [Jardiance] 25 MG) PO SCH (12:27)
[2018-05-05 16:13] LABS: Glucose,Whole Blood 145 mg/dL (75-99)
--- NOTE | 2018-05-05 19:03 | P.PN ---
Subjective Progress Note Date: 05/05/18 Principal diagnosis: Bilateral pulmonary embolism, dementia and Alzheimer's disease, left breast mass , coronary artery disease, CVA, diabetes mellitus, hypertension hypertensive cardiovascular disease, dyslipidemia, degenerative joint disease osteoarthritis 05/05/2018, patient seen eval reexamined during the rounds clinically patient has been doing well awake and alert breathing comfortably denies any chest pain patient heparin drip has been discontinued has been started on oral anticoagulants, denies any chest pain, I've discussed with the family member at length about the issues associated with fall and related complication, patient is being planned for possible discharge in next 24 hours if remains stable, patient is a high of 4 off IV antibiotics 05/04/2018, patient seen and evaluated examined care plan discussed with the patient's family at length, patient does have a history of fall but however family does understand that she needs anticoagulation given significant pulmonary embolism, currently patient remains on IV heparin tolerating fairly well labs reviewed medications reviewed, hemoglobin remained stable 05/03/2018, patient seen eval examined during the rounds while covering for Dr. Thomas Sequeira, clinically patient has been doing relatively well patient has been evaluated by surgical services for a left breast mass, overall it appears to be hematoma, altered mental status, urinary tract infection, patient is being treated with IV heparin for bilateral pulmonary embolism Objective - Vital Signs Vital signs: Vital Signs Temp 98.4 F 05/05/18 00:00 Pulse 79 05/05/18 12:00 Resp 16 05/05/18 12:00 BP 132/70 05/05/18 12:00 Pulse Ox 94 L 05/05/18 12:00 Intake & Output 05/05/18 05/05/18 05/06/18 06:59 18:59 06:59 Intake Total 900 Balance 900 Weight 57.5 kg Intake: Oral 900 Other: # Voids 1 2 - Exam GENERAL EXAM: Patient is alert and and doesn't appear to be in any acute distress HEENT: Normocephalic. Normal reaction of pupils, equal size, normal range of extraocular motion. No erythema or exudates in the throat. NECK: No masses, no nuchal rigidity. CHEST: No chest wall deformity. LUNGS: Equal air entry with no crackles or wheeze. HEART: S1 and S2 normal with no audible mumurs or gallops. Regular rhythm, femorals equal on both sides.. ABDOMEN: No hepatosplenomegaly, normal bowel sounds, no guarding or rigidity. SKIN: No rashes CENTRAL NERVOUS SYSTEM: No focal deficits. EXTREMITIES: No cyanosis, clubbing or edema. - Labs CBC & Chem 7: 05/05/18 06:22 05/03/18 06:37 Labs: Abnormal Lab Results - Last 24 Hours (Table) 05/04/18 05/05/18 05/05/18 Range/Units 21:18 05:52 11:06 POC Glucose (mg/dL) 145 H 152 H 223 H (75-99) mg/dL 05/05/18 Range/Units 16:05 POC Glucose (mg/dL) 145 H (75-99) mg/dL Microbiology - Last 24 Hours (Table) 04/29/18 17:00 Blood Culture - Preliminary Blood No Growth after 120 hours Assessment and Plan Assessment: Bilateral pulmonary embolism on IV heparin, will DC it and start patient on Eliquis Left breast hematoma Altered mental status multifactorial associated with UTI versus advanced dementia History of CVA Elevated troponins Thyroid gland nodule Plan: Continue anticoagulation Continue broad-spectrum antibiotics Continue home medications Further recommendations pending follow clinical course closely Time with Patient: Greater than 30
[2018-05-05] MEDS: CEFDINIR 300 MG CAP PO SCH (20:12)
[2018-05-05 20:15] LABS: Glucose,Whole Blood 180 mg/dL (75-99)
[2018-05-05] MEDS: INSULIN DETEMIR 100 UNIT/ML 10 ML VIAL SQ SCH (20:15)
--- NOTE | 2018-05-05 22:47 | PN ---
PROGRESS NOTE DATE OF SERVICE: 05/05/2018. REASON FOR FOLLOWUP: Urinary tract infection. INTERVAL HISTORY: The patient is afebrile. She is breathing comfortably. The patient denies having any chest pain or shortness of breath or cough. No nausea, vomiting or diarrhea. PHYSICAL EXAMINATION: Blood pressure 132/70 with a pulse of 79, temperature 98, she is 94%. GENERAL DESCRIPTION: An elderly female lying in bed in no distress. RESPIRATORY SYSTEM: Unlabored breathing. Clear to auscultation anteriorly. HEART: S1, S2. Regular rate and rhythm. LABS: White count is normal. DIAGNOSTIC IMPRESSION AND PLAN: Patient with UTI. Underlying infection has been adequately treated. She is currently switched over to the home Cefzil which can be discontinued as the patient has received adequate treatment for underlying UTI. Continue supportive care. MMODL / IJN: [id number] /
[2018-05-06] MEDS: REPAGLINIDE 1 MG TAB PO SCH (07:23)
[2018-05-06] MEDS: ASPIRIN 81 MG PO SCH (07:23)
[2018-05-06] MEDS: APIXABAN 5 MG TAB PO SCH (07:23)
[2018-05-06] MEDS: CITALOPRAM HYDROBROMIDE 20 MG TAB PO SCH (07:23)
[2018-05-06] MEDS: DOCUSATE 100 MG CAP PO SCH (07:23)
[2018-05-06] MEDS: DONEPEZIL 5 MG TAB PO SCH (07:25)
[2018-05-06] MEDS: NON-FORMULARY DRUG (Empagliflozin [Jardiance] 25 MG) PO SCH (07:26)
[2018-05-06] MEDS: CEFDINIR 300 MG CAP PO SCH (07:52)
[2018-05-06] MEDS: MULTIVITAMINS, THERA 1 EACH TAB PO SCH (07:53)
[2018-05-06 07:58] LABS: Basophils # (A) 0.1 k/uL (0-0.2); Basophils % (A) 1 %; Eosinophils # (A) 0.6 k/uL (0-0.7); Eosinophils % (A) 6 %; HCT 38.8 % (34.0-46.0); HGB 12.7 gm/dL (11.4-16.0); Lymphocytes # (A) 2.9 k/uL (1.0-4.8); Lymphocytes % (A) 27 %; MCH 30.4 pg (25.0-35.0); MCHC 32.7 g/dL (31.0-37.0); MCV 93.1 fL (80.0-100.0); Mean Platelet Volume 9.1; Monocytes # (A) 0.8 k/uL (0-1.0); Monocytes % (A) 7 %; Neutrophils # (A) 6.1 k/uL (1.3-7.7); Neutrophils % (A) 57 %; Platelet Count 168 k/uL (150-450); RBC 4.17 m/uL (3.80-5.40); WBC 10.7 k/uL (3.8-10.6)
[2018-05-06 11:20] VITALS: BMI 23.1
--- NOTE | 2018-05-06 12:54 | PN ---
PROGRESS NOTE DATE OF SERVICE: 05/06/2018 REASON FOR FOLLOWUP: UTI. INTERVAL HISTORY: The patient is currently afebrile, she is more awake, alert. She is breathing comfortably. Denies having any chest pain, shortness of breath. No cough, no abdominal pain, no diarrhea. PHYSICAL EXAMINATION: Blood pressure 127/68, pulse of 77, temperature 97.3, she is 95% on room air. General description is an elderly female, up in the chair in no distress. RESPIRATORY SYSTEM: Unlabored breathing, clear to auscultation anteriorly. HEART: S1, S2. Regular rate and rhythm. pulmonary. LABS: No new labs have been obtained today. DIAGNOSTIC IMPRESSION AND PLAN: Patient admitted to the hospital with mental status changes likely multifactorial with a component of urinary tract infection. Underlying infection has been adequately treated. No need for antibiotic on discharge. Continue supportive care. MMODL / IJN: [id number] /
--- NOTE | 2018-05-06 14:23 | P.PN ---
Subjective Progress Note Date: 05/06/18 Principal diagnosis: Bilateral pulmonary embolism, dementia and Alzheimer's disease, left breast mass , coronary artery disease, CVA, diabetes mellitus, hypertension hypertensive cardiovascular disease, dyslipidemia, degenerative joint disease osteoarthritis 05/06/2018, patient seen eval examined during the rounds clinically patient has been doing well awake and alert breathing comfortably no obvious distress present, denies any chest pain breathing comfortably on room air patient has a scheduled to be discharged to F later on today labs reviewed medications reviewed care plan discussed with the family at length 05/05/2018, patient seen eval reexamined during the rounds clinically patient has been doing well awake and alert breathing comfortably denies any chest pain patient heparin drip has been discontinued has been started on oral anticoagulants, denies any chest pain, I've discussed with the family member at length about the issues associated with fall and related complication, patient is being planned for possible discharge in next 24 hours if remains stable, patient is a high of 4 off IV antibiotics 05/04/2018, patient seen and evaluated examined care plan discussed with the patient's family at length, patient does have a history of fall but however family does understand that she needs anticoagulation given significant pulmonary embolism, currently patient remains on IV heparin tolerating fairly well labs reviewed medications reviewed, hemoglobin remained stable 05/03/2018, patient seen eval examined during the rounds while covering for Dr. Thomas Sequeira, clinically patient has been doing relatively well patient has been evaluated by surgical services for a left breast mass, overall it appears to be hematoma, altered mental status, urinary tract infection, patient is being treated with IV heparin for bilateral pulmonary embolism Objective - Vital Signs Vital signs: Vital Signs Temp 97.3 F L 05/06/18 06:20 Pulse 77 05/06/18 06:20 Resp 17 05/06/18 06:20 BP 127/68 05/06/18 06:20 Pulse Ox 95 05/06/18 06:20 Intake & Output 05/05/18 05/06/18 05/06/18 18:59 06:59 18:59 Intake Total 900 Balance 900 Weight 57.5 kg Intake: Oral 900 Other: # Voids 2 2 - Exam GENERAL EXAM: Patient is alert and and doesn't appear to be in any acute distress HEENT: Normocephalic. Normal reaction of pupils, equal size, normal range of extraocular motion. No erythema or exudates in the throat. NECK: No masses, no nuchal rigidity. CHEST: No chest wall deformity. LUNGS: Equal air entry with no crackles or wheeze. HEART: S1 and S2 normal with no audible mumurs or gallops. Regular rhythm, femorals equal on both sides.. ABDOMEN: No hepatosplenomegaly, normal bowel sounds, no guarding or rigidity. SKIN: No rashes CENTRAL NERVOUS SYSTEM: No focal deficits. EXTREMITIES: No cyanosis, clubbing or edema. - Labs CBC & Chem 7: 05/06/18 07:20 05/03/18 06:37 Labs: Abnormal Lab Results - Last 24 Hours (Table) 05/05/18 05/05/18 05/06/18 Range/Units 16:05 20:14 07:20 WBC 10.7 H (3.8-10.6) k/uL POC Glucose (mg/dL) 145 H 180 H (75-99) mg/dL Microbiology - Last 24 Hours (Table) 04/29/18 17:00 Blood Culture - Final Blood No Growth after 144 hours Assessment and Plan Assessment: Bilateral pulmonary embolism on Eliquis Left breast hematoma Altered mental status multifactorial associated with UTI versus advanced dementia History of CVA Elevated troponins Thyroid gland nodule Plan: Continue anticoagulation Stop antibiotics Continue home medications Medications reviewed, discharge later on today Further recommendations pending follow clinical course closely Time with Patient: Greater than 30
--- NOTE | 2018-05-06 14:28 | P.DS ---
Providers Date of admission: 04/30/18 13:36 Expected date of discharge: 05/06/18 Attending physician: Thomas Sequeira Consults: 04/29/18 15:54 Consult Physician Urgent Consulting Provider: [facility] Consult Reason/Comments: Elevated troponin Do you want consulting provider notified?: Yes 04/29/18 20:56 Consult Physician Routine Consulting Provider: Jaspal Luevano Consult Reason/Comments: UTI Do you want consulting provider notified?: Yes, Notify in am 04/29/18 21:24 Consult Physician Routine Consulting Provider: Fantasma Leos Consult Reason/Comments: Altered Mental Status Do you want consulting provider notified?: Yes, Notify in am 04/30/18 14:20 Consult Physician Urgent Consulting Provider: Armani Johnson Consult Reason/Comments: DES PULM. EMBOLI Do you want consulting provider notified?: Yes 05/01/18 11:02 Consult Physician Routine Consulting Provider: Yovanny Campuzano Consult Reason/Comments: M1 segment blockage on CTA Do you want consulting provider notified?: Already Contacted 05/02/18 16:09 Consult Physician Routine Consulting Provider: Savanna Becerril Consult Reason/Comments: breast mass Do you want consulting provider notified?: Yes Primary care physician: [facility] Course: Principal diagnosis: Bilateral pulmonary embolism, dementia and Alzheimer's disease, left breast mass , coronary artery disease, CVA, diabetes mellitus, hypertension hypertensive cardiovascular disease, dyslipidemia, degenerative joint disease osteoarthritis 05/06/2018, patient seen eval examined during the rounds clinically patient has been doing well awake and alert breathing comfortably no obvious distress present, denies any chest pain breathing comfortably on room air patient has a scheduled to be discharged to F later on today labs reviewed medications reviewed care plan discussed with the family at length 05/05/2018, patient seen eval reexamined during the rounds clinically patient has been doing well awake and alert breathing comfortably denies any chest pain patient heparin drip has been discontinued has been started on oral anticoagulants, denies any chest pain, I've discussed with the family member at length about the issues associated with fall and related complication, patient is being planned for possible discharge in next 24 hours if remains stable, patient is a high of 4 off IV antibiotics 05/04/2018, patient seen and evaluated examined care plan discussed with the patient's family at length, patient does have a history of fall but however family does understand that she needs anticoagulation given significant pulmonary embolism, currently patient remains on IV heparin tolerating fairly well labs reviewed medications reviewed, hemoglobin remained stable 05/03/2018, patient seen eval examined during the rounds while covering for Dr. Thomas Sequeira, clinically patient has been doing relatively well patient has been evaluated by surgical services for a left breast mass, overall it appears to be hematoma, altered mental status, urinary tract infection, patient is being treated with IV heparin for bilateral pulmonary embolism Objective - Vital Signs Vital signs: Vital Signs Temp 97.3 F L 05/06/18 06:20 Pulse 77 05/06/18 06:20 Resp 17 05/06/18 06:20 BP 127/68 05/06/18 06:20 Pulse Ox 95 05/06/18 06:20 Intake & Output 05/05/18 05/06/18 05/06/18 18:59 06:59 18:59 Intake Total 900 Balance 900 Weight 57.5 kg Intake: Oral 900 Other: # Voids 2 2 - Exam GENERAL EXAM: Patient is alert and and doesn't appear to be in any acute distress HEENT: Normocephalic. Normal reaction of pupils, equal size, normal range of extraocular motion. No erythema or exudates in the throat. NECK: No masses, no nuchal rigidity. CHEST: No chest wall deformity. LUNGS: Equal air entry with no crackles or wheeze. HEART: S1 and S2 normal with no audible mumurs or gallops. Regular rhythm, femorals equal on both sides.. ABDOMEN: No hepatosplenomegaly, normal bowel sounds, no guarding or rigidity. SKIN: No rashes CENTRAL NERVOUS SYSTEM: No focal deficits. EXTREMITIES: No cyanosis, clubbing or edema. - Labs CBC & Chem 7: 05/06/18 07:20 05/03/18 06:37 Labs: Abnormal Lab Results - Last 24 Hours (Table) 05/05/18 05/05/18 05/06/18 Range/Units 16:05 20:14 07:20 WBC 10.7 H (3.8-10.6) k/uL POC Glucose (mg/dL) 145 H 180 H (75-99) mg/dL Microbiology - Last 24 Hours (Table) 04/29/18 17:00 Blood Culture - Final Blood No Growth after 144 hours Assessment and Plan Assessment: Bilateral pulmonary embolism on Eliquis Left breast hematoma Altered mental status multifactorial associated with UTI versus advanced dementia History of CVA Elevated troponins Thyroid gland nodule Plan: Continue anticoagulation Stop antibiotics Continue home medications Medications reviewed, discharge later on today Further recommendations pending follow clinical course closely Pertinent Studies: Head and neck ultrasound, breast ultrasound, CT angiogram, brain CT, chest x-ray Procedures: None Patient Condition at Discharge: Good Plan - Discharge Summary Discharge Rx Participant: No New Discharge Prescriptions: No Action Aspirin 81 mg PO DAILY [place]-3 Fatty Acids [[place]-3] 1,000 mg PO DAILY Multivitamins, Thera [Multivitamin (formulary)] 1 tab PO DAILY Mylanta 30 ml PO Q6H PRN PRN Reason: Nausea Insulin Detemir [Levemir] 25 unit SQ HS Empagliflozin [Jardiance] 25 mg PO DAILY Docusate [Colace] 100 mg PO DAILY Citalopram Hydrobromide [CeleXA] 20 mg PO DAILY Donepezil [Aricept] 5 mg PO DAILY Acetaminophen [Tylenol Extra Strength] 500 mg PO Q6H PRN PRN Reason: Pain Magnesium Hydroxide [Milk of Magnesia] 800 mg PO Q72H PRN PRN Reason: Constipation Repaglinide [Prandin] 0.5 mg PO DAILY Discharge Medication List Aspirin 81 mg PO DAILY 09/21/14 [History] Multivitamins, Thera [Multivitamin (formulary)] 1 tab PO DAILY 10/14/14 [History ] [place]-3 Fatty Acids [[place]-3] 1,000 mg PO DAILY 10/14/14 [History] Citalopram Hydrobromide [CeleXA] 20 mg PO DAILY 04/01/18 [History] Docusate [Colace] 100 mg PO DAILY 04/01/18 [History] Donepezil [Aricept] 5 mg PO DAILY 04/01/18 [History] Empagliflozin [Jardiance] 25 mg PO DAILY 04/01/18 [History] Insulin Detemir [Levemir] 25 unit SQ HS 04/01/18 [History] Mylanta 30 ml PO Q6H PRN 04/01/18 [History] Acetaminophen [Tylenol Extra Strength] 500 mg PO Q6H PRN 04/29/18 [History] Magnesium Hydroxide [Milk of Magnesia] 800 mg PO Q72H PRN 04/29/18 [History] Repaglinide [Prandin] 0.5 mg PO DAILY 04/29/18 [History] Apixaban [Eliquis] 5 mg PO BID 05/06/18 [History] Follow up Appointment(s)/Referral(s): Thomas Sequeira MD [Primary Care Provider] - 1-2 days Armani Johnson MD [STAFF PHYSICIAN] - 1 Week Activity/Diet/Wound Care/Special Instructions: Pt resides at [facility].
[2018-05-06 16:54] VITALS: BP 120/62; PULSE 71; RESP 16; TEMP 98.2
--- NOTE | 2018-05-09 10:16 | EEG ---
ELECTROENCEPHALOGRAM REPORT DATE OF SERVICE: 05/02/2018 REASON FOR TESTING: Altered mental status. DESCRIPTION OF THE PROCEDURE: This EEG was performed using a 21 channel digital electroencephalograph, following international 10-20 system. DESCRIPTION OF THE RECORDING: From the beginning of the tracing, and with patient's eyes closed, the background rhythm was mostly consisting of 7 Hz theta frequency in the posterior occipital leads. No obvious asymmetry is seen. Photic stimulation was performed with no driving response seen. No pathological waves were elicited. Hyperventilation was not performed. Occasional muscle artifacts are seen. The patient remains awake throughout the tracing. No epileptiform discharges were seen. Her EKG lead showed a regular rate and rhythm. INTERPRETATION: This awake EEG is abnormal due to the presence of generalized slowing of the background rhythm, mostly in the theta range. This is consistent with mild encephalopathy. No epileptiform discharges were seen. The absence of epileptiform discharges does not rule out the diagnosis of epilepsy; therefore clinical correlation is recommended. MMLEWISL / SONYA: [id number] /
== END 2018-05-06 18:49 | DRG 175 ==
LOC: EC 12:47 → 3SCARD 15:57 → OBSVTOIN 04-30 13:36 → 4MS4W 05-06 00:04
PROVIDERS: ADMIT Family Medicine; ATTEND Family Medicine
DX: I26.99 Other pulmonary embolism without acute cor pulmonale (principal); G93.41 Metabolic encephalopathy; N39.0 Urinary tract infection, site not specified; I48.1 Persistent atrial fibrillation; E11.40 Type 2 diabetes mellitus with diabetic neuropathy, unspecified; I66.09 Occlusion and stenosis of unspecified middle cerebral artery; I11.0 Hypertensive heart disease with heart failure; I50.9 Heart failure, unspecified; I65.23 Occlusion and stenosis of bilateral carotid arteries; G30.9 Alzheimer's disease, unspecified; F02.80 Dementia in other diseases classified elsewhere, unspecified severity, without behavioral disturbance, psychotic disturbance, mood disturbance, and anxiety; E78.5 Hyperlipidemia, unspecified; S20.02XA Contusion of left breast, initial encounter; I25.10 Atherosclerotic heart disease of native coronary artery without angina pectoris; R40.2362 Coma scale, best motor response, obeys commands, at arrival to emergency department; R40.2142 Coma scale, eyes open, spontaneous, at arrival to emergency department; R40.2242 Coma scale, best verbal response, confused conversation, at arrival to emergency department; M19.90 Unspecified osteoarthritis, unspecified site; R32 Unspecified urinary incontinence; E04.1 Nontoxic single thyroid nodule; R77.8 Other specified abnormalities of plasma proteins; R29.6 Repeated falls; L30.9 Dermatitis, unspecified; Z79.82 Long term (current) use of aspirin; Z79.01 Long term (current) use of anticoagulants; Z79.4 Long term (current) use of insulin; Z79.899 Other long term (current) drug therapy; Z90.49 Acquired absence of other specified parts of digestive tract; Z86.73 Personal history of transient ischemic attack (TIA), and cerebral infarction without residual deficits; Z95.0 Presence of cardiac pacemaker; Z96.652 Presence of left artificial knee joint; Z88.1 Allergy status to other antibiotic agents; Z88.5 Allergy status to narcotic agent; Z88.0 Allergy status to penicillin; Z88.2 Allergy status to sulfonamides; Z88.8 Allergy status to other drugs, medicaments and biological substances; Z91.048 Other nonmedicinal substance allergy status; Z82.49 Family history of ischemic heart disease and other diseases of the circulatory system; W19.XXXA Unspecified fall, initial encounter; Y92.129 Unspecified place in nursing home as the place of occurrence of the external cause
CPT/HCPCS: 36415; 70450; 70496; 70498; 71046; 76536; 80053; 80306; 81001; 82550; 82553; 83036; 83605; 84484; 85025; 85610; 85730; 87040; 93005; 93306; 95816; 96361; 96365; 96366; 99285

== ENCOUNTER 2018-07-03 19:55 | Observation (INO) | payer MEDICARE, OTHER ==
--- NOTE | 2018-07-03 20:21 | ED ---
Chest Pain HPI - General Chief Complaint: Chest Pain Stated Complaint: Chest Pain Time Seen by Provider: 07/03/18 20:00 Source: patient, EMS, RN notes reviewed Mode of arrival: EMS Limitations: altered mental status - History of Present Illness Initial Comments: This is a 8-year-old female with a history of multiple medical problems including recent diagnoses of pulmonary embolism a CVA type 2 diabetes heart failure Alzheimer's disease CHF A. fib who presents with complaints of chest pain is been going on intermittently throughout the day today. She states she is currently not have any pain she points her mid chest she states it was dull and [id number] in severity. No associated symptoms of fevers chills nausea vomiting sweats he does tell also states she has some abdominal discomfort. No other symptoms. MD Complaint: chest pain - Related Data Home Medications Medication Instructions Recorded Confirmed Multivitamins, Thera [Multivitamin 1 tab PO DAILY 10/14/14 07/03/18 (formulary)] [place]-3 Fatty Acids [[place]-3] 1,000 mg PO DAILY 10/14/14 07/03/18 Citalopram Hydrobromide [CeleXA] 20 mg PO DAILY 04/01/18 07/03/18 Docusate [Colace] 100 mg PO DAILY 04/01/18 07/03/18 Donepezil [Aricept] 5 mg PO DAILY 04/01/18 07/03/18 Insulin Detemir (Levemir) [Levemir] 25 unit SQ HS 04/01/18 07/03/18 Acetaminophen [Tylenol Extra 500 mg PO Q6H PRN 04/29/18 07/03/18 Strength] Magnesium Hydroxide [Milk of 2,400 mg PO Q72H PRN 04/29/18 07/03/18 Magnesia] Repaglinide [Prandin] 0.5 mg PO DAILY 04/29/18 07/03/18 Apixaban [Eliquis] 5 mg PO BID 05/06/18 07/03/18 Atenolol [Tenormin] 12.5 mg PO BID 07/03/18 07/03/18 Allergies Allergy/AdvReac Type Severity Reaction Status Date / Time acetaminophen [From [place]] Allergy Unknown Verified 07/03/18 20:51 adhesive Allergy Unknown Verified 07/03/18 20:51 atenolol Allergy Unknown Verified 07/03/18 20:51 clindamycin Allergy Unknown Verified 07/03/18 20:51 clopidogrel bisulfate Allergy Unknown Verified 07/03/18 20:51 [From Plavix] codeine Allergy Unknown Verified 07/03/18 20:51 digoxin Allergy Unknown Verified 07/03/18 20:51 diltiazem HCl [From Cardizem] Allergy Unknown Verified 07/03/18 20:51 diphenhydramine HCl Allergy Anaphylaxis Verified 07/03/18 20:51 [From Benadryl] erythromycin base Allergy Unknown Verified 07/03/18 20:51 flecainide acetate Allergy Unknown Verified 07/03/18 20:51 [From Tambocor] glimepiride Allergy Rash/Hives Verified 07/03/18 20:51 glipizide Allergy Unknown Verified 07/03/18 20:51 hydrocodone bitartrate Allergy Unknown Verified 07/03/18 20:51 [From [place]] lisinopril Allergy Unknown Verified 07/03/18 20:51 lorazepam [From Ativan] Allergy Unknown Verified 07/03/18 20:51 metformin Allergy Unknown Verified 07/03/18 20:51 metoprolol succinate Allergy Unknown Verified 07/03/18 20:51 [From Toprol XL] Penicillins Allergy Rash/Hives Verified 07/03/18 20:51 prednisolone Allergy Rash/Hives Verified 07/03/18 20:51 prochlorperazine Allergy Unknown Verified 07/03/18 20:51 propafenone HCl Allergy Unknown Verified 07/03/18 20:51 [From Rythmol] propoxyphene napsylate Allergy Swelling Verified 07/03/18 20:51 [From Darvocet-N] propranolol Allergy Unknown Verified 07/03/18 20:51 pseudoephedrine HCl Allergy Unknown Verified 07/03/18 20:51 [From Sudafed] rosiglitazone maleate Allergy Unknown Verified 07/03/18 20:51 [From Avandia] Gyuwkzb-Lgz-Yxn Reductase Allergy Unknown Verified 07/03/18 20:51 Inhibitor Sulfa (Sulfonamide Allergy Rash/Hives Verified 07/03/18 20:51 Antibiotics) verapamil HCl [From Calan] Allergy Unknown Verified 07/03/18 20:51 warfarin sodium Allergy Rash/Hives Verified 07/03/18 20:51 [From Coumadin] altaryl Allergy Unknown Uncoded 04/01/18 18:00 antihistamines Allergy Unknown Uncoded 04/01/18 18:39 Review of Systems ROS Statement: Those systems with pertinent positive or pertinent negative responses have been documented in the HPI. ROS Other: All systems not noted in ROS Statement are negative. EKG Findings - EKG Results: EKG: interpreted by ERMD (AV dual paced rhythm of 79. Interval 174 QRS duration 180 QT since QTC 44/554 this is compared with EKG dated 04/29/18 showing similar configuration.) Past Medical History Past Medical History: Coronary Artery Disease (CAD), Heart Failure, CVA/TIA, Dementia, Diabetes Mellitus, Hyperlipidemia, Hypertension, Osteoarthritis (OA) Additional Past Medical History / Comment(s): bladder incont,neuropathy, dermatitis,past falls(per [facility] paperwork, pt not ambulatory), uti, per 2014 summary-past afib History of Any Multi-Drug Resistant Organisms: None Reported Past Surgical History: Cardiac Ablation, Cholecystectomy, Pacemaker Additional Past Surgical History / Comment(s): LEFT KNEE Past Anesthesia/Blood Transfusion Reactions: No Reported Reaction Type of Cardiac Device: Permanent Pacemaker Device Placement Date:: Unknown Past Psychological History: Anxiety Smoking Status: Never smoker - Past Family History Brother(s) Family Medical History: Myocardial Infarction (HI) Father Family Medical History: Myocardial Infarction (HI) General Exam - General Exam Comments Initial Comments: This is a well-developed asthenic appearing female who is awake alert oriented 2 Limitations: altered mental status General appearance: alert, in no apparent distress Head exam: Present: atraumatic, normocephalic, normal inspection Eye exam: Present: normal appearance, PERRL, EOMI. Absent: scleral icterus, conjunctival injection, periorbital swelling ENT exam: Present: mucous membranes dry Neck exam: Present: normal inspection, full ROM, other (No stridor JVD or bruits ). Absent: tenderness, meningismus, lymphadenopathy Respiratory exam: Present: normal lung sounds bilaterally. Absent: respiratory distress, wheezes, rales, rhonchi, stridor, chest wall tenderness Cardiovascular Exam: Present: regular rate, normal rhythm, normal heart sounds. Absent: systolic murmur, diastolic murmur, rubs, gallop, clicks GI/Abdominal exam: Present: soft, tenderness (I'll epigastric tenderness palpation some increased temperature to percussion), normal bowel sounds. Absent: distended, guarding, rebound, rigid, bruit, pulsatile mass Extremities exam: Present: normal inspection, full ROM, normal capillary refill. Absent: tenderness, pedal edema, joint swelling, calf tenderness Back exam: Present: normal inspection Neurological exam: Present: alert, oriented X3, CN II-XII intact Psychiatric exam: Present: normal affect, normal mood Skin exam: Present: warm, dry, intact, normal color. Absent: rash Course Vital Signs 07/03/18 19:57 Temperature 97.4 F L Pulse Rate 78 Respiratory 20 Rate Blood Pressure 158/78 O2 Sat by Pulse 99 Oximetry Chest Pain MDM - MDM Did review the imaging and report no acute findings. Patient's demonstrate no recurrence of chest pain. I discussed the findings with her also with Dr. Sequeira. Patient be admitted for further evaluation of a retro-sternal chest pain. Disposition Clinical Impression: Chest pain, Unstable angina pectoris Disposition: ADMITTED IP TO THIS HOSP Condition: Stable Referrals: Thomas Sequeira MD [Primary Care Provider] - 1-2 days
[2018-07-03 20:39] LABS: ALT 24 U/L (9-52); AST 15 U/L (14-36); Albumin 3.4 g/dL (3.5-5.0); Alkaline Phosphatase 69 U/L (38-126); Amylase 49 U/L (30-110); Anion Gap 5 mmol/L; Blood Urea Nitrogen 16 mg/dL (7-17); Calcium 9.2 mg/dL (8.4-10.2); Carbon Dioxide 29 mmol/L (22-30); Chloride 104 mmol/L (98-107); Glucose 182 mg/dL (74-99); Lipase 135 U/L (23-300); Magnesium 1.9 mg/dL (1.6-2.3); Potassium 4.4 mmol/L (3.5-5.1); Sodium 138 mmol/L (137-145); Total Bilirubin 0.3 mg/dL (0.2-1.3); Total Protein 6.7 g/dL (6.3-8.2)
[2018-07-03 20:42] LABS: Partial Thromboplastin Time 26.2 sec (22.0-30.0); Prothrombin Time 10.3 sec (9.0-12.0)
[2018-07-03 21:02] LABS: Basophils # (A) 0.1 k/uL (0-0.2); Basophils % (A) 1 %; Eosinophils # (A) 0.5 k/uL (0-0.7); Eosinophils % (A) 5 %; HCT 38.6 % (34.0-46.0); HGB 12.3 gm/dL (11.4-16.0); Lymphocytes # (A) 3.2 k/uL (1.0-4.8); Lymphocytes % (A) 34 %; MCH 29.8 pg (25.0-35.0); MCV 93.1 fL (80.0-100.0); Monocytes # (A) 0.9 k/uL (0-1.0); Monocytes % (A) 9 %; Neutrophils # (A) 4.7 k/uL (1.3-7.7); Neutrophils % (A) 50 %; Platelet Count 276 k/uL (150-450); RBC 4.15 m/uL (3.80-5.40); RDW 13.5 % (11.5-15.5); WBC 9.5 k/uL (3.8-10.6)
--- NOTE | 2018-07-03 21:53 | XR ---
EXAMINATION TYPE: XR abdomen 2V DATE OF EXAM: 07/03/2018 COMPARISON: None INDICATION: Pain epigastric pain TECHNIQUE: Abdomen is examined in the supine and upright views FINDINGS: Colonic bowel gas is present. Some fecal debris is in the ascending and transverse colon. A small izabela unt of fecal debris is in the descending colon. EKG leads overlie the chest. Cholecystectomy clips ar e in the right upper quadrant. No free air is evident. No suspicious differential air-fluid levels ar e present. On the supine view there is some linear faint radiopaque linear densities along the distal transverse colon region likely artifact overlying the abdomen. Psoas margins are normal. No organomegaly is present. IMPRESSION: 1. Mild fecal retention.
--- NOTE | 2018-07-03 21:54 | XR ---
EXAMINATION TYPE: XR chest 2V DATE OF EXAM: 07/03/2018 COMPARISON: 04/29/2018 INDICATION: Chest pain TECHNIQUE: Frontal and lateral views of the chest are obtained. FINDINGS: The heart size is normal. The pulmonary vasculature is normal. The lungs are clear. IMPRESSION: 1. No acute pulmonary process.
[2018-07-03] MEDS ORDERED: NITROGLYCERIN SL TABS 0.4 MG TAB SUBLINGUAL PRN (22:29)
[2018-07-03] MEDS ORDERED: SODIUM CHLORIDE 0.9% 1,000 ML IV SCH (22:30)
[2018-07-03] MEDS ORDERED: MAGNESIUM HYDROXIDE 2,400 MG/10 ML CUP PO PRN (22:32)
[2018-07-03] MEDS ORDERED: ACETAMINOPHEN TAB 500 MG TAB PO PRN (22:32)
[2018-07-04 00:26] VITALS: RESP 18
[2018-07-04 03:13] LABS: Cholesterol 194 mg/dL (<200); HDL Cholesterol 26 mg/dL (40-60); LDL Cholesterol,Calculated 99 mg/dL (0-99); Triglycerides 347 mg/dL (<150)
[2018-07-04 06:41] LABS: Glucose,Whole Blood 87 mg/dL (75-99)
[2018-07-04] MEDS: INSULIN ASPART (NovoLOG) 100 UNIT/ML VIAL SQ SCH ×2 (08:51→12:26)
[2018-07-04] MEDS ORDERED: ASPIRIN 325 MG TAB PO SCH (09:00)
[2018-07-04] MEDS ORDERED: ATENOLOL 25 MG TAB PO SCH (09:00)
[2018-07-04] MEDS ORDERED: APIXABAN 5 MG TAB PO SCH (09:00)
[2018-07-04] MEDS ORDERED: NON-FORMULARY DRUG (Omega-3 Fatty Acids [Omega-3] 1,000 MG) PO SCH (09:00)
[2018-07-04] MEDS ORDERED: CITALOPRAM HYDROBROMIDE 20 MG TAB PO SCH (09:00)
[2018-07-04] MEDS ORDERED: DONEPEZIL 5 MG TAB PO SCH (09:00)
[2018-07-04] MEDS ORDERED: REPAGLINIDE 1 MG TAB PO SCH (09:00)
[2018-07-04] MEDS ORDERED: DOCUSATE 100 MG CAP PO SCH (09:00)
--- NOTE | 2018-07-04 10:32 | P.CRDCN ---
History of Present Illness History of present illness: This is a pleasant 83-year-old female past medical history significant for chronic persistent atrial fibrillation, diabetes mellitus, hypertension, dyslipidemia, prior CVA, history of permanent pacemaker implantation, recent pulmonary embolism and dementia. She follows in the office with Dr. Hart. We have been asked to see her in consultation for symptoms chest discomfort. The patient has baseline altered mental status due to dementia and is a poor historian. Information is obtained from nursing and medical record. She presented to the hospital yesterday with complaints of chest pain. Per the nurse the pain was on the right side of her chest anteriorly with radiation into the right shoulder. EKG at the time of admission reveals AV paced rhythm. She is seen and examined laying flat in bed in no acute distress. She denies any symptoms of chest pain, shortness of breath, dizziness or palpitations. She was recently seen in the hospital in April 2018 and was diagnosed with bilateral PE's and was started on fdc anti- coagulation. Chest x-ray negative for an acute cardiopulmonary process. Laboratory data reviewed, WBC 9.5, hemoglobin 12.3, platelets 276, d-dimer 0.6, sodium 138, potassium 4.4, creatinine 0.53, magnesium 1.9, cardiac enzymes negative 3, LDL 99 and HDL 26. Current cardiac medications include Eliquis 5 mg twice a day, atenolol 12.5 mg twice a day. Most recent echocardiogram obtained April 2018 reveals preserved left ventricular systolic function with ejection fraction 50-55%, mildly dilated left atrium, aortic stenosis mean gradient 7 mmHg, mild TR and mild MR. Unable to obtain an accurate review of systems secondary to altered mental status. Patient denies all complaints at this time. Blood pressure 134/74 heart rate 79 afebrile maintaining oxygen saturation on room air GENERAL: This is a 82-year-old female in no apparent distress at the time of my examination. HEENT: Head is atraumatic, normocephalic. Pupils are equal, round. Sclerae anicteric. Conjunctivae are clear. Mucous membranes of the mouth are moist. Neck is supple. There is no jugular venous distention. No carotid bruit is heard. LUNGS: Clear to auscultation no wheezes, rales or rhonchi. No chest wall tenderness is noted on palpation or with deep breathing. HEART: Regular rate and rhythm with systolic ejection murmur at the base, no rubs or gallops. S1 and S2 heard. ABDOMEN: Soft, nontender. Bowel sounds are heard. No organomegaly noted. EXTREMITIES: No evidence of peripheral edema and no calf tenderness noted. VASCULAR: Radial and dorsalis pedis pulses palpated, no evidence of clubbing. NEUROLOGIC: Patient is awake, alert but confused. ASSESSMENT Right sided chest pain upon admission Chronic persistent atrial fibrillation with controlled ventricular response s/p permanent pacemaker implantation History of PE on fdc anti-coagulation Hypertension Aortic stenosis, mild. Dementia/alzheimers disease PLAN An acute coronary event has been ruled out. No history of CAD in the past documented. Patient is free of anginal symptoms. Recommend conservative medical approach, will maximize her medical therapy with addition of long acting nitrates. Stable from a cardiac perspective. Follow up with Dr. Hart in the office upon discharge. Thank you kindly for this consultation. Nurse Practitioner note has been reviewed, I agree with a documented findings and plan of care. Patient was seen and examined. Past Medical History Past Medical History: Coronary Artery Disease (CAD), Heart Failure, CVA/TIA, Dementia, Diabetes Mellitus, Hyperlipidemia, Hypertension, Osteoarthritis (OA), Pulmonary Embolus (PE) Additional Past Medical History / Comment(s): bladder incont,neuropathy, dermatitis,past falls(per [facility] paperwork, pt not ambulatory), uti, per 2015 summary-past afib, large mass in left breast - per record hematoma dx in 04/2018 History of Any Multi-Drug Resistant Organisms: None Reported Past Surgical History: Cardiac Ablation, Cholecystectomy, Pacemaker Additional Past Surgical History / Comment(s): LEFT KNEE Past Anesthesia/Blood Transfusion Reactions: No Reported Reaction Type of Cardiac Device: Permanent Pacemaker Device Placement Date:: Unknown Past Psychological History: Anxiety Additional Psychological History / Comment(s): pt resides at [facility]. pt is alert but disorientated. per [facility] transfer paperwork pt not ambulatory-hx of falls, needs assits with feeding and all adls Smoking Status: Unknown if ever smoked Past Alcohol Use History: None Reported Past Drug Use History: None Reported - Past Family History Brother(s) Family Medical History: Myocardial Infarction (SD) Father Family Medical History: Myocardial Infarction (SD) Medications and Allergies Home Medications Medication Instructions Recorded Confirmed Type Multivitamins, Thera [Multivitamin 1 tab PO DAILY 10/14/14 07/03/18 History (formulary)] [place]-3 Fatty Acids [[place]-3] 1,000 mg PO DAILY 10/14/14 07/03/18 History Citalopram Hydrobromide [CeleXA] 20 mg PO DAILY 04/01/18 07/03/18 History Docusate [Colace] 100 mg PO DAILY 04/01/18 07/03/18 History Donepezil [Aricept] 5 mg PO DAILY 04/01/18 07/03/18 History Insulin Detemir (Levemir) [Levemir] 25 unit SQ HS 04/01/18 07/03/18 History Acetaminophen [Tylenol Extra 500 mg PO Q6H PRN 04/29/18 07/03/18 History Strength] Magnesium Hydroxide [Milk of 2,400 mg PO Q72H PRN 04/29/18 07/03/18 History Magnesia] Repaglinide [Prandin] 0.5 mg PO DAILY 04/29/18 07/03/18 History Apixaban [Eliquis] 5 mg PO BID 05/06/18 07/03/18 History Atenolol [Tenormin] 12.5 mg PO BID 07/03/18 07/03/18 History Allergies Allergy/AdvReac Type Severity Reaction Status Date / Time acetaminophen [From [place]] Allergy Unknown Verified 07/03/18 20:51 adhesive Allergy Unknown Verified 07/03/18 20:51 atenolol Allergy Unknown Verified 07/03/18 20:51 clindamycin Allergy Unknown Verified 07/03/18 20:51 clopidogrel bisulfate Allergy Unknown Verified 07/03/18 20:51 [From Plavix] codeine Allergy Unknown Verified 07/03/18 20:51 digoxin Allergy Unknown Verified 07/03/18 20:51 diltiazem HCl [From Cardizem] Allergy Unknown Verified 07/03/18 20:51 diphenhydramine HCl Allergy Anaphylaxis Verified 07/03/18 20:51 [From Benadryl] erythromycin base Allergy Unknown Verified 07/03/18 20:51 flecainide acetate Allergy Unknown Verified 07/03/18 20:51 [From Tambocor] glimepiride Allergy Rash/Hives Verified 07/03/18 20:51 glipizide Allergy Unknown Verified 07/03/18 20:51 hydrocodone bitartrate Allergy Unknown Verified 07/03/18 20:51 [From [place]] lisinopril Allergy Unknown Verified 07/03/18 20:51 lorazepam [From Ativan] Allergy Unknown Verified 07/03/18 20:51 metformin Allergy Unknown Verified 07/03/18 20:51 metoprolol succinate Allergy Unknown Verified 07/03/18 20:51 [From Toprol XL] Penicillins Allergy Rash/Hives Verified 07/03/18 20:51 prednisolone Allergy Rash/Hives Verified 07/03/18 20:51 prochlorperazine Allergy Unknown Verified 07/03/18 20:51 propafenone HCl Allergy Unknown Verified 07/03/18 20:51 [From Rythmol] propoxyphene napsylate Allergy Swelling Verified 07/03/18 20:51 [From Darvocet-N] propranolol Allergy Unknown Verified 07/03/18 20:51 pseudoephedrine HCl Allergy Unknown Verified 07/03/18 20:51 [From Sudafed] rosiglitazone maleate Allergy Unknown Verified 07/03/18 20:51 [From Avandia] Rmssowu-Slb-Krw Reductase Allergy Unknown Verified 07/03/18 20:51 Inhibitor Sulfa (Sulfonamide Allergy Rash/Hives Verified 07/03/18 20:51 Antibiotics) verapamil HCl [From Calan] Allergy Unknown Verified 07/03/18 20:51 warfarin sodium Allergy Rash/Hives Verified 07/03/18 20:51 [From Coumadin] altaryl Allergy Unknown Uncoded 04/01/18 18:00 antihistamines Allergy Unknown Uncoded 04/01/18 18:39 Physical Exam Vitals: Vital Signs Temp Pulse Pulse Resp BP BP Pulse Ox 07/04/18 08:00 79 18 07/04/18 07:40 97.4 F L 79 18 134/74 100 07/04/18 03:31 97.5 F L 80 18 151/63 99 07/04/18 03:20 18 07/04/18 00:00 97.3 F L 75 18 173/73 98 07/03/18 22:30 86 20 144/78 95 07/03/18 19:57 97.4 F L 78 20 158/78 99 Intake and Output 07/03/18 07/04/18 07/04/18 22:59 06:59 14:59 Intake Total 30 Balance 30 Intake: Amount of Fluid Infused ( 30 ml) Other: Voiding Method Diaper Diaper # Voids 2 Weight 49.8 kg Results 07/03/18 20:17 07/03/18 20:17 Cardiac Enzymes 07/03/18 07/03/18 07/03/18 Range/Units 20:17 20:17 22:57 AST 15 (14-36) U/L Troponin I <0.012 <0.012 (0.000-0.034) ng/mL 07/04/18 Range/Units 07:35 AST (14-36) U/L Troponin I <0.012 (0.000-0.034) ng/mL Coagulation 07/03/18 Range/Units 20:17 PT 10.3 (9.0-12.0) sec APTT 26.2 (22.0-30.0) sec Lipids 07/03/18 Range/Units 20:17 Triglycerides 347 H (<150) mg/dL Cholesterol 194 (<200) mg/dL HDL Cholesterol 26 L (40-60) mg/dL CBC 07/03/18 Range/Units 20:17 WBC 9.5 (3.8-10.6) k/uL RBC 4.15 (3.80-5.40) m/uL Hgb 12.3 (11.4-16.0) gm/dL Hct 38.6 (34.0-46.0) % Plt Count 276 (150-450) k/uL Comprehensive Metabolic Panel 07/03/18 Range/Units 20:17 Sodium 138 (137-145) mmol/L Potassium 4.4 (3.5-5.1) mmol/L Chloride 104 (98-107) mmol/L Carbon Dioxide 29 (22-30) mmol/L BUN 16 (7-17) mg/dL Creatinine 0.53 (0.52-1.04) mg/dL Glucose 182 H (74-99) mg/dL Calcium 9.2 (8.4-10.2) mg/dL AST 15 (14-36) U/L ALT 24 (9-52) U/L Alkaline Phosphatase 69 (38-126) U/L Total Protein 6.7 (6.3-8.2) g/dL Albumin 3.4 L (3.5-5.0) g/dL Current Medications Generic Name Dose Route Start Last Admin Trade Name Freq PRN Reason Stop Dose Admin Acetaminophen 500 mg 07/03/18 22:32 Tylenol Tab PO Q6H PRN Pain Apixaban 5 mg 07/04/18 09:00 Eliquis PO BID [facility] Aspirin 325 mg 07/04/18 09:00 Aspirin PO DAILY [facility] Atenolol 12.5 mg 07/04/18 09:00 Tenormin PO BID [facility] Citalopram Hydrobromide 20 mg 07/04/18 09:00 Celexa PO DAILY [facility] Docusate Sodium 100 mg 07/04/18 09:00 Colace PO DAILY [facility] Donepezil HCl 5 mg 07/04/18 09:00 Aricept PO DAILY [facility] Sodium Chloride 1,000 mls @ 20 mls/hr 07/03/18 22:30 Saline 0.9% IV .Q24H [facility] Insulin Aspart 0 unit 07/04/18 07:30 07/04/18 08:51 Novolog SQ Not Given ACHS [facility] Protocol Insulin Detemir 25 unit 07/04/18 21:00 Levemir SQ HS [facility] Magnesium Hydroxide 2,400 mg 07/03/18 22:32 Milk Of Magnesia PO Q72H PRN Constipation Multivitamins 1 each 07/04/18 12:00 Theragran PO DAILY@1200 [facility] Nitroglycerin 0.4 mg 07/03/18 22:29 Nitrostat SUBLINGUAL Q5M PRN Chest Pain Repaglinide 0.5 mg 07/04/18 09:00 Prandin PO DAILY [facility] Intake and Output 07/03/18 07/04/18 07/04/18 22:59 06:59 14:59 Intake Total 30 Balance 30 Intake: Amount of Fluid Infused ( 30 ml) Other: Voiding Method Diaper Diaper # Voids 2 Weight 49.8 kg 07/03/18 20:17 07/03/18 20:17
[2018-07-04] MEDS ORDERED: ISOSORBIDE MONONITRATE ER 30 MG TAB.ER.24H PO SCH (10:45)
[2018-07-04 11:44] LABS: Glucose,Whole Blood 203 mg/dL (75-99)
[2018-07-04 11:59] VITALS: BP 90/54; PULSE 74; TEMP 98.3
[2018-07-04] MEDS ORDERED: MULTIVITAMINS, THERA 1 EACH TAB PO SCH (12:00)
--- NOTE | 2018-07-04 12:49 | HP ---
HISTORY AND PHYSICAL SUBJECTIVE: An 82-year-old white female, chronic persistent atrial fibrillation, diabetes mellitus, hypertension, dyslipidemia, prior CVA, permanent pacemaker with recent pulmonary embolism and dementia is admitted to the hospital for atypical chest pain, possibly abdominal pain. She points to her abdomen, the nurse states she has been pointing to her right side of her chest anteriorly, radiating to the right shoulder possibly, although she feels good. She feels much better than when she was admitted. She has severe dementia, which is hard to appreciate where the pain is coming from. Her D- dimer is negative. White count is 9.5, hemoglobin is 12.3. Chest x-ray is normal. Creatinine was 0.53. Cardiac enzymes are negative. She is already on Eliquis 5 mg b.i.d., atenolol 12.5 b.i.d. An echo shows normal ejection fraction recently of 50% - 55%. ALLERGIES: See list. REVIEW OF SYSTEMS: A 14-point review of systems negative except for mentioned in HPI. PHYSICAL EXAMINATION: Blood pressure is 134/74, heart rate 70 to 79. She is afebrile, in no acute distress. She is alert but confused. Vascular is no peripheral edema. No integument, rash. Heart rate S1, S2. Lungs are clear. No rales, rhonchi, or wheeze. ASSESSMENT: 1. Right-sided chest pain, possible abdominal pain. X-ray of the abdomen shows some possible constipation issues. 2. Status post permanent pacemaker. 3. History of pulmonary embolism. 4. Hypertension. 5. Aortic stenosis. 6. Dementia. Cardiac has been ruled out. PE has been ruled out. Cardiology has cleared for discharge. She will possibly be discharged today as long as she has nitroglycerin so we can discharge her home. Possibly stool softener as outpatient. MMODL / IJN: [id number] /
[2018-07-04] MEDS ORDERED: INSULIN DETEMIR (LEVEMIR) 100 UNIT/ML SYR SQ SCH (21:00)
--- NOTE | 2018-07-05 05:31 | DS ---
DISCHARGE SUMMARY DATE OF ADMISSION: 07/03/2018 DATE OF DISCHARGE: 07/04/2018 DISCHARGE DIAGNOSIS: 1. Atypical chest pain, myocardial infarction ruled out. 2. History of pulmonary embolism. 3. Unstable angina pectoris. 4. Hematoma of the left breast. 5. Chronic atrial fibrillation. 6. Hypertension. 7. Diabetes mellitus. 8. Dementia. 9. Severe depression. 10.Insulin-dependent diabetes mellitus. HOME MEDICINES: Home medicines will be: 1. Multivitamin daily. 2. [place]-3, 1000 mg daily. 3. Celexa 20 mg daily. 4. Colace 100 mg daily. 5. Aricept 5 mg daily. 6. Levemir 25 units at night. 7. Acetaminophen 500 mg q.6 hours p.r.n. 8. Milk of magnesia 2400 mg p.o. q.72 hours p.r.n. 9. Prandin 0.5 mg daily. 10.Eliquis 5 mg b.i.d. 11.Tenormin 12.5 b.i.d. 12.She will also go home on Imdur 30 mg daily and nitro 0.4 mg sublingual p.r.n. for chest pain. CONDITION: Stable. PROGNOSIS: Guarded. Ambulate as tolerated. HOSPITAL COURSE OF EVENTS: This 82-year-old white female was admitted to the hospital for chest pain. Chest x-ray was negative for any infiltrate. D-dimer was negative. Myocardial infarction was ruled out with negative troponins x3. The patient was stabilized and cleared from cardiac standpoint as Imdur was added for chest pain 30 mg daily and nitroglycerin sublingual p.r.n. Otherwise her medications stayed the same. She will be discharged home. Dr. Sequeira will follow her up in the [place] [facility]. She had some abdominal pain, which x-ray showed some mild constipation at which time she was sent home with Colace. Follow up as outpatient. MMODL / IJN: [id number] /
== END 2018-07-04 15:00 ==
LOC: EC 19:55 → 1SOBS 22:29
PROVIDERS: ADMIT Family Medicine; ATTEND Family Medicine
DX: R07.89 Other chest pain (principal); I11.0 Hypertensive heart disease with heart failure; I50.9 Heart failure, unspecified; I48.2 Chronic atrial fibrillation; I48.1 Persistent atrial fibrillation; I25.110 Atherosclerotic heart disease of native coronary artery with unstable angina pectoris; I35.0 Nonrheumatic aortic (valve) stenosis; E11.42 Type 2 diabetes mellitus with diabetic polyneuropathy; G30.9 Alzheimer's disease, unspecified; F02.80 Dementia in other diseases classified elsewhere, unspecified severity, without behavioral disturbance, psychotic disturbance, mood disturbance, and anxiety; K59.00 Constipation, unspecified; E78.5 Hyperlipidemia, unspecified; M19.90 Unspecified osteoarthritis, unspecified site; F41.9 Anxiety disorder, unspecified; N64.89 Other specified disorders of breast; F32.9 Major depressive disorder, single episode, unspecified; R32 Unspecified urinary incontinence; L30.9 Dermatitis, unspecified; Z79.01 Long term (current) use of anticoagulants; Z79.4 Long term (current) use of insulin; Z86.711 Personal history of pulmonary embolism; Z79.899 Other long term (current) drug therapy; Z88.6 Allergy status to analgesic agent; Z88.1 Allergy status to other antibiotic agents; Z88.5 Allergy status to narcotic agent; Z88.0 Allergy status to penicillin; Z88.2 Allergy status to sulfonamides; Z88.8 Allergy status to other drugs, medicaments and biological substances; Z91.048 Other nonmedicinal substance allergy status; Z86.73 Personal history of transient ischemic attack (TIA), and cerebral infarction without residual deficits; Z87.440 Personal history of urinary (tract) infections; Z90.49 Acquired absence of other specified parts of digestive tract; Z95.0 Presence of cardiac pacemaker; Z82.49 Family history of ischemic heart disease and other diseases of the circulatory system
CPT/HCPCS: 99285; 36415; 93005; 85379; 80061; 80053; 82150; 83690; 83735; 84484 ×2; 85025; 85610; 85730; 71046; 74019; G0378 ×2